=== PATIENT | male | born 1965 | race Caucasian/White ===

== ENCOUNTER 2020-11-18 21:25 | Observation (INO) | payer BC, SELFPAY ==
[2020-11-18 21:26] VITALS: BP 143/84; PULSE 78; RESP 20; TEMP 36.4; O2SAT 88; BMI 35.5
[2020-11-18 21:43] VITALS: BP 143/84; BP 144/83; PULSE 76; PULSE 78; RESP 20; TEMP 36.4; O2SAT 90; O2SAT 92
[2020-11-18 22:33] VITALS: BP 140/84; PULSE 72; PULSE 78; RESP 23; TEMP 36.4; O2SAT 90
--- NOTE | 2020-11-18 22:37 | RAD_ITS ---
STUDY: X-RAY CHEST REASON FOR EXAM: Male, 55 years old. cough TECHNIQUE: One view COMPARISON: Prior chest radiograph of 12/11/2011 FINDINGS: Chronic scarring at the left lung base with a blunted costophrenic angle. Pleural and/or parenchymal calcifications. Negative for new consolidation, focal atelectasis or substantial pleural effusion. Normal size heart. Normal mediastinum and luli. Normal visualized pulmonary arteries. Normal visualized aortic arch and descending thoracic aorta. Normal visualized thoracic spine. Normal visualized ribs, clavicles, and shoulders. There is no demonstrated abnormality of the visualized soft tissue structures of the upper abdomen. RAD/Chest 1 View (Portable) IMPRESSION: Chronic pleural parenchymal changes at the left lung base. Negative for new consolidation, focal atelectasis or other infiltrates. Electronically Signed: Elicia Gallardo MD at 23:26 EST , Service support ,
--- NOTE | 2020-11-18 22:39 | EKG12_ITS ---
Test Reason : SOB Blood Pressure : / mmHG Vent. Rate : 073 BPM Atrial Rate : 073 BPM P-R Int : 140 ms QRS Dur : 088 ms QT Int : 384 ms P-R-T Axes : 054 121 068 degrees QTc Int : 423 ms Normal sinus rhythm Left posterior fascicular block Poor R wave progression Abnormal ECG Confirmed by SKYE ROSENBAUM, ARIADNE ([id number]), editor book PRETTY VALLECILLO ([id number]) on 11/23/2020 2:20:55 PM Referred By: Confirmed By:ARIADNE CHEUNG MD
--- NOTE | 2020-11-18 22:40 | ED.DCSUM_ITS ---
History of Present Illness Chief Complaint: Shortness of Breath Narrative: 55-year-old male presenting with shortness of breath x3 weeks. Patient states he has been gradually getting worse. He states he is having difficulty sleeping and that his pulse ox has been dipping into the 80s at home. Patient is scheduled for a sleep study in a couple of weeks. Patient has history of COPD and is a current smoker. He denies chest pain or palpitations. Patient has been hospitalized in the past for COPD exacerbations. He has not been intubated. Patient denies fever, chills, myalgias, change in taste or smell. He does not know of any exposures to COVID-19 or other illness. Past Medical History - Allergies and Home Meds Allergies/Adverse Reactions: Allergies sulfamethoxazole [From Bactrim] Adverse Reaction (Verified 11/18/20 21:28) Nausea/Vom/Diarrhea trimethoprim [From Bactrim] Adverse Reaction (Verified 11/18/20 21:28) Nausea/Vom/Diarrhea Primary Care Physician: [facility] Doctor,Out of [NON-STAFF] - Prior records reviewed: Yes Past Medical History: - - Hypertension, COPD, hyperlipidemia Surgical History: noncontributory Smoking Status: Current every day smoker Alcohol: None Drugs: None - Family History Maternal Family History: Reports: No pertinent history Paternal Family History: Reports: No pertinent history Review of Systems General: Denies: Chills, Fever, Sweats Eyes: Denies: Visual changes - bilaterally, Diplopia ENT: Denies: Rhinorrhea, Sore throat Cardiovascular: Denies: Chest pain, Palpitations Respiratory: Reports: Dyspnea, Dyspnea on exertion Gastrointestinal: Denies: Nausea, Vomiting, Diarrhea, Constipation, Melena, Hematochezia, -, - Genitourinary: Denies: Dysuria, Hematuria, Frequency Musculoskeletal: Denies: Back pain, Extremity Pain Skin: Denies: Rash, Wounds Neurological: Denies: Headache, Weakness, Numbness Psych: Denies: Depression, Anxiety, Suicidal thoughts, Suicidal ideations, -, - Physical Exam Vital Signs/Narrative: Vital Signs Temp Pulse Resp BP Pulse Ox 11/18/20 22:33 97.6 F L 78 23 H 140/84 H 90 11/18/20 21:43 97.6 F L 78 20 H 143/84 H 92 11/18/20 21:26 97.6 F L 78 20 H 143/84 H 88 Inital Vital Signs reviewed: Yes General: Obese, No Acute Distress Head: Normocephalic, Atraumatic Eyes: Perrl, EOMI ENT: Moist mucous membranes, No rhinorrhea. Negative for: TM's clear, Dry mucous membranes, Nasal congestion, Sinus tenderness, - Cardiovascular: Regular rate, Regular rhythm Respiratory: No distress, Wheezing Abdomen: Soft, Nontender, Nondistended, Normal bowel sounds Extremities: Nontender, Edema - Trace bilateral edema in lower extremities. Skin: Normal color, No rash. Negative for: Cyanosis, Diaphoresis Neurological: Alert, Oriented x3, Cranial nerves II-XII grossly intact Psychological: Normal affect, Normal Mood Diagnostic/Tx/Re-eval Clinical Impression(s) from Imaging Studies Chest X-Ray 11/18/20 22:37 IMPRESSION: Chronic pleural parenchymal changes at the left lung base. Negative for new consolidation, focal atelectasis or other infiltrates. Electronically Signed: Elicia Gallardo MD at 23:26 EST , Service support , Laboratory Data 11/18/20 11/18/20 11/18/20 21:52 21:52 21:52 WBC 11.0 RBC 5.64 Hgb 16.1 Hct 52.9 MCV 93.8 MCH 28.5 MCHC 30.4 L RDW Std Deviation 51.5 H RDW Coeff of Maylin 15.0 H Plt Count 287 MPV 9.7 Immature Gran % (Auto) 0.300 Neut % (Auto) 70.1 H Lymph % (Auto) 14.9 L [place] % (Auto) 11.8 H Eos % (Auto) 2.1 Baso % (Auto) 0.8 Absolute Neuts (auto) 7.7 Absolute Lymphs (auto) 1.63 Nucleated RBC % 0 D-Dimer Quant (PE/DVT) 0.37 Sodium 141 Potassium 4.4 Chloride 106 Carbon Dioxide 34.0 H Anion Gap 1 L BUN 18 Creatinine 0.77 Estim Creat Clear Calc 121.06 Est GFR (MDRD) Af Amer 135 Est GFR (MDRD) Non-Af 112 BUN/Creatinine Ratio 23.5 H Glucose 90 Lactic Acid Calcium 8.3 L Total Bilirubin 0.50 AST 6 L ALT 19 Alkaline Phosphatase 62 Troponin I < 0.015 B-Natriuretic Peptide Total Protein 6.3 L Albumin 3.3 Globulin 3.0 Albumin/Globulin Ratio 1.1 Procalcitonin COVID-19 (RACHEL) 11/18/20 11/18/20 11/18/20 21:52 21:52 21:52 WBC RBC Hgb Hct MCV MCH MCHC RDW Std Deviation RDW Coeff of Maylin Plt Count MPV Immature Gran % (Auto) Neut % (Auto) Lymph % (Auto) [place] % (Auto) Eos % (Auto) Baso % (Auto) Absolute Neuts (auto) Absolute Lymphs (auto) Nucleated RBC % D-Dimer Quant (PE/DVT) Sodium Potassium Chloride Carbon Dioxide Anion Gap BUN Creatinine Estim Creat Clear Calc Est GFR (MDRD) Af Amer Est GFR (MDRD) Non-Af BUN/Creatinine Ratio Glucose Lactic Acid 1.0 Calcium Total Bilirubin AST ALT Alkaline Phosphatase Troponin I B-Natriuretic Peptide 421.6 H Total Protein Albumin Globulin Albumin/Globulin Ratio Procalcitonin < 0.01 COVID-19 (RACHEL) 11/18/20 22:50 WBC RBC Hgb Hct MCV MCH MCHC RDW Std Deviation RDW Coeff of Maylin Plt Count MPV Immature Gran % (Auto) Neut % (Auto) Lymph % (Auto) [place] % (Auto) Eos % (Auto) Baso % (Auto) Absolute Neuts (auto) Absolute Lymphs (auto) Nucleated RBC % D-Dimer Quant (PE/DVT) Sodium Potassium Chloride Carbon Dioxide Anion Gap BUN Creatinine Estim Creat Clear Calc Est GFR (MDRD) Af Amer Est GFR (MDRD) Non-Af BUN/Creatinine Ratio Glucose Lactic Acid Calcium Total Bilirubin AST ALT Alkaline Phosphatase Troponin I B-Natriuretic Peptide Total Protein Albumin Globulin Albumin/Globulin Ratio Procalcitonin COVID-19 (RACHEL) Not Detected - Medical Decision Making 55-year-old male with history of COPD presenting with shortness of breath for the last 3 weeks. He has no fever, chills, myalgias, loss of taste or smell, chest pain. Patient states his oxygen saturations have been dipping into the low 80s at home. Patient also describes sleep apnea. Patient had EKG performed on arrival which is sinus rhythm at 73 bpm without signs of ischemic changes. Patient was given breathing treatments and Solu-Medrol because he was wheezing. Chest x-ray is interpreted by myself shows chronic changes without acute findings of infiltrate or CHF. BC shows white blood cell count 11, hemoglobin 16, platelets 287. D-dimer is negative. Covid 19 is negative. BMP is unremarkable with exception of an elevated CO2 at 34 which is only slightly elevated. Procalcitonin is negative. BNP is slightly elevated at 421.6. Patient does have some slight pedal edema but no findings of CHF on x-ray. Patient been reevaluated several times and has noted to be hypoxic into the 80s. The lowest I have seen him ad is 82. Given this I will admit him for further treatment. Impression: 1. COPD exacerbation 2. Hypoxia ED Disposition - Plan for ED Patient: Referrals: [facility] Doctor,Out of [NON-STAFF] -
[2020-11-18 22:49] LABS: Absolute Lymphocyte Count 1.63 X10^3/uL (0.83-4.51); Absolute Neutrophil Count 7.7 X10^3/uL (2.0-7.7); Basophil# 0.09 X10^3/uL; Basophil% 0.8 % (0-1); Eosinophil# 0.23 X10^3/uL; Eosinophils% 2.1 % (0-5); Hematocrit 52.9 % (40-54); Hemoglobin 16.1 g/dL (13.0-16.5); Lymphocyte # 1.63 X10^3/ul (4.0); Lymphocyte % 14.9 % (19-41); Mean Corp Hgb Conc 30.4 g/dL (32-36); Mean Corpuscular Hgb 28.5 pg (27.0-32.0); Mean Corpuscular Volume 93.8 fL (80-94); Mean Platelet Vol. 9.7 fl (6.2-12.0); Monocyte# 1.29 X10^3/uL; Monocyte% 11.8 % (0-10); NRBC Flagged by Analyzer 0 % (0-5); Neutrophil # 7.68 X10^3/uL (2.7-7.7); Neutrophil % 70.1 % (47-70); Platelet Count 287 K/mm3 (150-450); RBC Distribution Width SD 51.5 fl (35.1-43.9); Red Blood Count 5.64 M/mm3 (4.6-6.2)
[2020-11-18] MEDS: Ipratropium/Albuterol Sulfate 3 ML AMPUL.NEB INHALATION (22:53)
[2020-11-18] MEDS: Albuterol 2.5 MG/3 ML VIAL.NEB. INHALATION (22:53)
[2020-11-18 22:54] VITALS: PULSE 71; RESP 25
[2020-11-18 22:59] LABS: D-Dimer Quantitative (DVT/PE) 0.37 FEU/ug/m (0.27-0.49)
[2020-11-18 23:01] LABS: ALB/GLOB Ratio 1.1 RATIO (0.9-2.4); AST(SGOT) 6 U/L (15-37); Alanine Aminotransfer ALT/SGPT 19 U/L (16-61); Albumin, Serum 3.3 g/dL (3.2-5.0); Alkaline Phosphatase 62 U/L (45-117); Anion Gap 1 (5-15); BUN 18 mg/dL (7-18); BUN/Creat Ratio 23.5 RATIO (10-20); Calcium,Total 8.3 mg/dL (8.5-10.1); Chloride 106 mmol/L (98-107); Creatinine, Serum 0.77 mg/dL (0.70-1.30); EST Glomerular Filtration Rate 112 mL/min (>60); Est Glom Filt Rate - Afr Amer 135 mL/min (>60); Estimated Creatinine Clearance 121.06 ml/min; Glucose 90 mg/dL (74-106); Potassium 4.4 mmol/L (3.5-5.1); Protein, Total 6.3 g/dL (6.4-8.2); Sodium Level 141 mmol/L (136-145)
[2020-11-18 23:06] LABS: BNP,B-Type NATRIURETIC PEPTIDE 421.6 pg/mL (0-100)
[2020-11-18] MEDS: MethylPREDNISolone 125 MG/2 ML Vial IV (23:14)
[2020-11-18 23:15] VITALS: BP 136/78; PULSE 79; PULSE 82; RESP 20; TEMP 35.9; O2SAT 93
[2020-11-18 23:27] LABS: Procalcitonin < 0.01 ng/mL (0.00-0.09)
[2020-11-19] VITALS (15 sets, daily range): BP systolic 134–148; BP diastolic 68–83; PULSE 69–83; RESP 16–22; TEMP 35.9–36.5; O2SAT 84–96; BMI 36.5
--- NOTE | 2020-11-19 00:16 | ED.RN ---
PT INITIALLY DIDN'T WANT TO BE ADMITTED. DR. ALANIZ AWARE AND SPOKE WITH PT. PT IS NOW WILLING TO STAY.
--- NOTE | 2020-11-19 01:37 | PCM.HP.STD ---
<Julissa Morales - Last Filed: 11/19/20 02:17> Problem List (1) COPD exacerbation Status: Acute (2) Obesity (BMI 30-39.9) Status: Chronic (3) Hypertension Status: Chronic Qualifiers: Hypertension type: essential hypertension Qualified Code(s): I10 - Essential (primary) hypertension (4) Hyperlipidemia Status: Acute (5) Tobacco abuse Status: Acute History of Present Illness Date of Admission: 11/19/20 Chief Complaint: Shortness of breath The patient is a 55 year old M who presents today with shortness of breath. Patient reports this has been an ongoing issue over the past 3 weeks. Patient denies being knowledge of being around anyone who has COVID-19. Patient reports a similar episode in 2019 after which he was on oxygen for approximately 1 month and states they told me I had 3 viruses. Patient has not been on oxygen since. Patient denies fever, chills, chest pain, palpitations, nausea, vomiting, diarrhea, constipation. Patient received albuterol, DuoNeb, and Solu-Medrol 125 mg IV. Patient is currently on 4 L nasal cannula oxygen. Past Medical History Past Medical History (Chronic Problems): Chronic Problems Hypertension (Chronic) Hyperlipidemia (Chronic) Obesity (BMI 30-39.9) (Chronic) Tobacco abuse (Chronic) Allergies sulfamethoxazole [From Bactrim] Adverse Reaction (Verified 11/18/20 21:28) Nausea/Vom/Diarrhea trimethoprim [From Bactrim] Adverse Reaction (Verified 11/18/20 21:28) Nausea/Vom/Diarrhea Home Medications: Ambulatory Orders Medication Instructions Recorded Albuterol Aerosols [Ventolin 2.5 mg INHALATION Q6H PRN PRN 11/18/20 Aerosols] Albuterol IH (ProAir) [Proair Hfa 2 puff INHALATION Q6H PRN PRN 11/18/20 (SP)Vent Pts] Amlodipine [Norvasc] 10 mg PO DAILY 11/18/20 Aspirin [Aspirin, Baby] 81 mg PO DAILY@0800 11/18/20 Atorvastatin Calcium [Lipitor] 40 mg PO QHS 11/18/20 Fluticasone/Umeclidin/Vilanter 1 ea IH DAILY 11/18/20 [Trelegy Ellipta 100-62.5-25] Varenicline [Chantix] 1 mg PO DAILY 11/18/20 Surgical History: noncontributory Psychiatric History: No pertinent psych hx Lives: Spouse/ Significant Other Smoking Status: Current every day smoker Tobacco Use: Cigarettes Alcohol: None, Rare Drugs: None - *Family History Maternal History Items: No pertinent history Paternal History Items: No pertinent history Review of Systems Constitutional: Reports: Fatigue. Denies: Chills, Fever, Weight Change HEENT: Denies: Head Aches, Sinus Congestion, Sinus Drainage Cardiovascular: Denies: Chest Pain, Palpitations Respiratory: Reports: Cough - Dry occasional nonproductive cough, Shortness of breath at rest, Shortness of breath upon exertion. Denies: Sputum production, Wheezing Gastrointestinal: Denies: Abdominal Pain, Nausea, Vomiting Genitourinary: Denies: Dysuria Musculoskeletal: Denies: Joint Pain, Joint Tenderness Skin: Denies: Rash, Wounds Neurological: Denies: Numbness, Tingling, Focal weakness Psychiatric: Denies: Anxiety, Depression, Homicidal Ideations, Suicidal Ideations Hematologic/ Lymphatic: Denies: Easy Bruising, Easy Bleeding VTE Information - Inpt Only VTE Present on Admission: No VTE Mechan Device Prophylaxis: SCD's, None VTE Pharm Prophylaxis ordered?: Yes Patient Problems: Active and Suspected Problems COPD exacerbation (Acute) - Physical Exam Vitals/I&O's: Vital Signs Temp Pulse Resp BP Pulse Ox 96.7 F L 75 22 H 140/83 H 95 11/19/20 00:17 11/19/20 01:10 11/19/20 01:10 11/19/20 01:10 11/19/20 01:10 Oxygen Flow Rate (L/min) 4 Oxygen Delivery Method Nasal Cannula Weight: 269 lb 4.8 oz Body Mass Index (BMI) 35.5 General: Alert, Oriented x3, Cooperative HEENT: Atraumatic, PERRLA, EOMI, Normocephalic Neck: Supple, No JVD, Negative Carotid Bruits Lungs: Clear to auscultation, Normal air movement, Diminished, Short of Breath Cardiovascular: Regular rate, Regular Rhythm, Normal S1, Normal S2, No murmurs Abdomen: Bowel Sounds Present, Soft, Non Tender Extremities: No edema, Capillary Refill Less than 3 Seconds Skin: No rashes, No breakdown Musculoskeletal: No Tenderness to Palpation of Joints or Extremities Neurological: Cranial nerves II-XII grossly intact Psych/Mental Status: Normal Affect, Appropriate Laboratory Results 11/18/20 21:52: WBC 11.0, RBC 5.64, Hgb 16.1, Hct 52.9, MCV 93.8, MCH 28.5, MCHC 30.4 L, RDW Std Deviation 51.5 H, RDW Coeff of Maylin 15.0 H, Plt Count 287, MPV 9.7, Immature Gran % (Auto) 0.300, Neut % (Auto) 70.1 H, Lymph % (Auto) 14.9 L, [place] % (Auto) 11.8 H, Eos % (Auto) 2.1, Baso % (Auto) 0.8, Absolute Neuts (auto) 7.7, Absolute Lymphs (auto) 1.63, Nucleated RBC % 0 11/18/20 21:52: D-Dimer Quant (PE/DVT) 0.37 11/18/20 21:52: Sodium 141, Potassium 4.4, Chloride 106, Carbon Dioxide 34.0 H, Anion Gap 1 L, BUN 18, Creatinine 0.77, Estim Creat Clear Calc 121.06, Est GFR (MDRD) Af Amer 135, Est GFR (MDRD) Non-Af 112, BUN/Creatinine Ratio 23.5 H, Glucose 90, Calcium 8.3 L, Total Bilirubin 0.50, AST 6 L, ALT 19, Alkaline Phosphatase 62, Troponin I < 0.015, Total Protein 6.3 L, Albumin 3.3, Globulin 3.0, Albumin/Globulin Ratio 1.1 11/18/20 21:52: Lactic Acid 1.0 11/18/20 21:52: B-Natriuretic Peptide 421.6 H 11/18/20 21:52: Procalcitonin < 0.01 11/18/20 22:50: COVID-19 (RACHEL) Not Detected Assessment/Plan All Active Problems COPD exacerbation (Acute) 1.COPD exacerbation?Covid PCR negative, respiratory panel ordered. Routine duo nebs and as needed albuterol ordered. IV Solu-Medrol 40 mg every 8 hours ordered. Chest x-ray shows no acute changes. Patient currently on 4 L nasal cannula with orders to titrate to keep pulse ox greater than 90%. Will obtain ECHO to rule out CHF. 2. Obesity?consult nutrition. 3. Hypertension?stable. We will continue home regimen of Norvasc. 4. Hyperlipidemia?continue home regimen of aspirin and Lipitor. 5. Tobacco abuse?currently 1 pack/day smoker. Continue Chantix as part of smoking cessation treatment. DVT prophylaxis?subcutaneous Lovenox. This patient was seen by CASSIE Griffith under the supervision of Dr. Tate. <Cristopher Tate - Last Filed: 11/19/20 02:36> Problem List (1) Hypertension Status: Chronic Qualifiers: Hypertension type: essential hypertension Qualified Code(s): I10 - Essential (primary) hypertension (2) Hyperlipidemia Status: Chronic (3) COPD exacerbation Status: Acute (4) Obesity (BMI 30-39.9) Status: Chronic (5) Tobacco abuse Status: Chronic History of Present Illness The patient is a 55 year old M [] Past Medical History Allergies sulfamethoxazole [From Bactrim] Adverse Reaction (Verified 11/18/20 21:28) Nausea/Vom/Diarrhea trimethoprim [From Bactrim] Adverse Reaction (Verified 11/18/20 21:28) Nausea/Vom/Diarrhea - Physical Exam Vitals/I&O's: Vital Signs Temp Pulse Resp BP Pulse Ox 96.7 F L 75 22 H 140/83 H 95 11/19/20 00:17 11/19/20 01:10 11/19/20 01:10 11/19/20 01:10 11/19/20 01:10 Oxygen Flow Rate (L/min) 4 Oxygen Delivery Method Nasal Cannula Weight: 122.152 kg Body Mass Index (BMI) 35.5 Laboratory Results 11/18/20 21:52: WBC 11.0, RBC 5.64, Hgb 16.1, Hct 52.9, MCV 93.8, MCH 28.5, MCHC 30.4 L, RDW Std Deviation 51.5 H, RDW Coeff of Maylin 15.0 H, Plt Count 287, MPV 9.7, Immature Gran % (Auto) 0.300, Neut % (Auto) 70.1 H, Lymph % (Auto) 14.9 L, [place] % (Auto) 11.8 H, Eos % (Auto) 2.1, Baso % (Auto) 0.8, Absolute Neuts (auto) 7.7, Absolute Lymphs (auto) 1.63, Nucleated RBC % 0 11/18/20 21:52: D-Dimer Quant (PE/DVT) 0.37 11/18/20 21:52: Sodium 141, Potassium 4.4, Chloride 106, Carbon Dioxide 34.0 H, Anion Gap 1 L, BUN 18, Creatinine 0.77, Estim Creat Clear Calc 121.06, Est GFR (MDRD) Af Amer 135, Est GFR (MDRD) Non-Af 112, BUN/Creatinine Ratio 23.5 H, Glucose 90, Calcium 8.3 L, Total Bilirubin 0.50, AST 6 L, ALT 19, Alkaline Phosphatase 62, Troponin I < 0.015, Total Protein 6.3 L, Albumin 3.3, Globulin 3.0, Albumin/Globulin Ratio 1.1 11/18/20 21:52: Lactic Acid 1.0 11/18/20 21:52: B-Natriuretic Peptide 421.6 H 11/18/20 21:52: Procalcitonin < 0.01 11/18/20 22:50: COVID-19 (RACHEL) Not Detected Current Medications Acetaminophen (Acetaminophen 325 Mg Tablet) 650 mg PO Q6H PRN PRN PRN Reason: Pain Score 1-10/Temp > 100.7 F Albuterol Sulfate (Albuterol 2.5 Mg/3 Ml Vial.Neb.) 2.5 mg INHALATION Q2H PRN PRN PRN Reason: SHORTNESS OF BREATH Albuterol/Ipratropium (Ipratropium/Albuterol Sulfate 3 Ml Ampul.Neb) 3 ml INHALATION Q4H.RT RYAN Amlodipine Besylate (Amlodipine 10 Mg Tablet) 10 mg PO DAILY [facility] Aspirin (Aspirin 81 Mg Tab.Chew) 81 mg PO DAILY@0800 [facility] Atorvastatin Calcium (Atorvastatin Calcium 40 Mg Tablet) 40 mg PO QHS [facility] Enoxaparin Sodium (Enoxaparin 40 Mg/0.4 Ml Syringe) 40 mg SC DAILY [facility] Methylprednisolone (Methylprednisolone 40 Mg/Ml Vial) 40 mg IV Q8 RYAN Ondansetron HCl (Ondansetron 4 Mg/2 Ml Vial) 4 mg IV Q8H PRN PRN PRN Reason: NAUSEA/VOMITING Varenicline (Varenicline 1 Mg Tablet) 1 mg PO DAILY [facility] Assessment/Plan Patient was seen and examined independently. Patient complaint of 3 weeks of shortness of breath. Also he has chronic orthopnea. He denies any fever or chills. He has some edema of bilateral legs. He has a productive cough. 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 Previously (more than 2 years ago) he was on home oxygen but stopped using it since he improved. Patient A &O x3. Heart sounds S1-S2 are present. Patient with mild wheezes. Bilateral legs of mild edema. Assessment and plan. Covid test was negative. Chest x-ray was independently interpreted. Chest x-ray showed hyperinflation. Case was discussed with Julissa Figueroa, nurse practitioner; and I agree with the assessment and plan..
--- NOTE | 2020-11-19 01:49 | ECHOCS_ITS ---
Reason For Study: ARRHYTHMIA Procedure This was a 2D Doppler, Color Flow transthoracic echocardiogram. The study was technically difficult. Contrast injection was performed. Exam performed portable in patient room. Left Ventricle Normal left ventricle. The estimated ejection fraction is 55-60 %. Right Ventricle Normal systolic function. Atria Normal left atrium. Normal right atrium. Mitral Valve The mitral valve is structurally normal. No prolapse or stenosis seen. No mitral valve insufficiency. Tricuspid Valve Normal tricuspid valve. Aortic Valve Normal aortic valve. Pulmonic Valve The pulmonic valve is not well visualized. Great Vessels Normal aortic root. Inferior vena cava collapse with respiration. Pericardium/Pleural No pericardial effusion. Medication Diluted definity 5.0ml given slow IV push to enhance endocardial definition. MMode/2D Measurements & Calculations LVIDd: 5.7 cm IVSd: 1.1 cm Ao root diam: 3.7 cm LVIDs: 3.7 cm LVPWd: 1.1 cm FS: 34.6 % LAV(MOD-bp): 73.3 ml LA A4 area: 20.6 cm2 LA dimension(2D): 4.1 cm LAV(MOD-bp) Indexed: 29.7 ml/m2 LAV(MOD-sp2): 79.5 ml LAV(MOD-sp4): 65.5 ml RA A4 area: 26.4 cm2 Time Measurements MV dec time: 0.29 sec Doppler Measurements & Calculations MV E max anil: 97.9 cm/sec Lat Peak E' Anil: 9.8 cm/sec Med Peak E' Anil: 6.6 cm/sec MV A max anil: 77.3 cm/sec E/E' lat: 10.0 E/E' med: 14.9 MV E/A: 1.3 Ao V2 max: 163.9 cm/sec LV V1 max: 135.8 cm/sec PA V2 max: 113.5 cm/sec Ao max P.8 mmHg LV V1 max P.4 mmHg TR max anil: 205.0 cm/sec TR max P.8 mmHg Interpretation Summary The estimated ejection fraction is 55-60 %. Normal left ventricle systolic function Inferior vena cava collapse with respiration. Definity study showed Normal LV wall motion Ordering Physician: Julissa Morales Performed By: Fara Mcintyre RDCS, RVT
[2020-11-19] MEDS: Ipratropium/Albuterol Sulfate 3 ML AMPUL.NEB INHALATION ×4 (03:37→14:24)
[2020-11-19 06:57] LABS: Absolute Lymphocyte Count 0.36 X10^3/uL (0.83-4.51); Absolute Neutrophil Count 10.8 X10^3/uL (2.0-7.7); Basophil# 0.02 X10^3/uL; Basophil% 0.2 % (0-1); Hemoglobin 16.7 g/dL (13.0-16.5); Lymphocyte # 0.36 X10^3/ul (4.0); Lymphocyte % 3.2 % (19-41); Mean Corp Hgb Conc 29.7 g/dL (32-36); Mean Corpuscular Volume 94.5 fL (80-94); Mean Platelet Vol. 9.6 fl (6.2-12.0); Monocyte# 0.04 X10^3/uL; Monocyte% 0.4 % (0-10); NRBC Flagged by Analyzer 0 % (0-5); Neutrophil # 10.83 X10^3/uL (2.7-7.7); Neutrophil % 95.8 % (47-70); POSITIVE DIFFERENTIAL YES; Platelet Count 285 K/mm3 (150-450); RBC Distribution Width CV 15.6 % (11.6-14.6); Red Blood Count 5.96 M/mm3 (4.6-6.2); White Blood Count 11.3 K/mm3 (4.4-11.0)
[2020-11-19 06:59] LABS: Hematocrit 56.3 % (40-54)
[2020-11-19 07:00] LABS: Differential Indicated SCAN CRITERIA MET
[2020-11-19 07:24] LABS: Anion Gap 0 (5-15); BUN 14 mg/dL (7-18); BUN/Creat Ratio 18.2 RATIO (10-20); Calcium,Total 8.6 mg/dL (8.5-10.1); Chloride 105 mmol/L (98-107); Creatinine, Serum 0.77 mg/dL (0.70-1.30); EST Glomerular Filtration Rate 111 mL/min (>60); Est Glom Filt Rate - Afr Amer 135 mL/min (>60); Estimated Creatinine Clearance 121.06 ml/min; Glucose 191 mg/dL (74-106); Sodium Level 140 mmol/L (136-145)
[2020-11-19 07:48] LABS: Differential Comment SCANNED
[2020-11-19] MEDS: Aspirin 81 MG TAB.CHEW PO (10:23)
[2020-11-19] MEDS: Enoxaparin 40 MG/0.4 ML Syringe SC (10:23)
--- NOTE | 2020-11-19 12:50 | CASEMGMT ---
Addendum entered by Gail Vargas 11/19/20 15:20: PASTOR YAÑEZ sent referral to [employer] and arranged for O2 tank to be delivered to pt room prior to dc. Original Note: PASTOR YAÑEZ assessment: Face to Face with patient for initial transition planning/care coordination assessment. PASTOR YAÑEZ introduced self and role at [facility], pt voices understanding and consents to assessment. Pt sitting up in bed in no distress on O2. Daughter at bedside. Pt is A/Ox4 and answers all questions appropriately at this time. Care providers, pharmacy, and demographics verified/updated. Presentation: SOB x 3 wks Admitting dx: COPD exacerbation PCP: Gerardo Specialists: [place]let gardiner from [facility]. Pt has an appt set up for Monday11/23/20. Preferred [facility]acy: [facility] Insurance: [place] Prescription Benefit: Living Will/ HPOA: Pt states does not have LW/HPOA and declines AD info at this time. LNOK: Ivis Cho Living Arrangements: Pt states he lives in a modular home with his which has a ramp for entry. Pt states I in ADL's. Transportation: Pt states drives self and states no transportation concerns. DME/HHC: Pt states he has the following equipment from his son's recent surgery that he has access to: shower chair, raised toilet seat, cane, walker, w/c. He also has a nebulizer machine. Denies need for further DME. He has not had HHC previously. Pt qualifies for home O2. Rx received. PASTOR YAÑEZ discussed DME companies with pt. Pt provided with list of DME providers in network with insurance. Pt's preferred provider is [facility]. Pt states no concerns with going home at time of discharge. 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 Pt reports smoking 1 pack of cigarettes per day and is a social drinker. Pt states no further concerns/needs. CM to follow for any further for any further discharge planning/needs. Advised pt to ask for CM if any further questions/concerns/needs arise, voices understanding.
--- NOTE | 2020-11-19 15:37 | DCINST_ITS ---
- Discharge Diagnoses Current Active Problems: Current Active and Chronic Problems Hypertension (Chronic) Hyperlipidemia (Chronic) COPD exacerbation (Acute) Obesity (BMI 30-39.9) (Chronic) Tobacco abuse (Chronic) You will use the following diet at home:: Calorie/Carbohydrate Controlled (specify 1200, 1400, etc) - 2000 Your food should be the consistency of: Regular Your liquids should be the consistency of: Regular/Thin Discharge Activity: Return to Normal Activity Call your doctor if you observe: Fever of 101 or Higher, Shortness of breath, Dizziness, Fainting spells, Swelling in the ankles, Chest pain, Increased palpitations (irregular heartbeat) Instructions: Treatments for COPD, ED Heart Failure Congestive Right Additional Instructions: Follow-up with your PCP tomorrow at 1030. Recommend attending a BMP at some point next week to evaluate renal function. Your creatinine while here was around 0.77 however I am starting you on Lasix secondary to the possibility of diastolic heart failure since your BNP was elevated at 421, your echo showed a normal EF. I also recommend following up with pulmonology to obtain sleep study as you also likely have a component of obstructive sleep apnea. We will continue with 7 days of prednisone 40 mg p.o. daily. Allergies/Adverse Reactions: Allergies sulfamethoxazole [From Bactrim] Adverse Reaction (Verified 11/18/20 21:28) Nausea/Vom/Diarrhea trimethoprim [From Bactrim] Adverse Reaction (Verified 11/18/20 21:28) Nausea/Vom/Diarrhea Medications to take at Discharge Albuterol Aerosols [Ventolin Aerosols] 2.5 mg INHALATION Q6H PRN PRN 11/18/20 Albuterol IH (ProAir) [Proair Hfa] 2 puff INHALATION Q6H PRN PRN 11/18/20 Amlodipine [Norvasc] 10 mg PO DAILY 11/18/20 Aspirin [Aspirin, Baby] 81 mg PO DAILY@0800 11/18/20 Atorvastatin Calcium [Lipitor] 40 mg PO QHS 11/18/20 Fluticasone/Umeclidin/Vilanter [Trelegy Ellipta 100-62.5-25] 1 ea IH DAILY 11/18/20 Varenicline [Chantix] 1 mg PO DAILY 11/18/20 Furosemide [Lasix] 20 mg PO DAILY #30 tab 11/19/20 Prednisone [Deltasone] 40 mg PO DAILY #14 tab 11/19/20 The following prescriptions were given: Prednisone [Deltasone] 40 mg PO DAILY #14 tab Transmission Status: Pending to [facility] Furosemide [Lasix] 20 mg PO DAILY #30 tab Transmission Status: Pending to [facility] Primary Care Physician: [facility] Doctor,Out of [NON-STAFF] - Please follow up with your Primary Care Physician in: 11/20/2020 at 10:30 Test Results: Test results from this visit will be discussed in further detail at your follow- up appointment, if applicable. Please Follow Up With: Pulmonology When: 11/23/2020
--- NOTE | 2020-11-19 16:31 | DS.PCM_ITS ---
Discharge Date and Diagnosis - Problem List Patient Problems: Active and Suspected Problems COPD exacerbation (Acute) Date of Admission: 11/19/20 Date of Discharge: 11/19/20 - Primary Discharge Diagnosis Acute Problems: Active Problems COPD exacerbation (Acute) - Secondary Discharge Diagnosis Chronic Problems: Chronic Problems Hypertension (Chronic) Hyperlipidemia (Chronic) Obesity (BMI 30-39.9) (Chronic) Tobacco abuse (Chronic) Hospital Course and Treatment Imaging Results: Clinical Impression(s) from Imaging Studies Chest X-Ray 11/18/20 22:37 IMPRESSION: Chronic pleural parenchymal changes at the left lung base. Negative for new consolidation, focal atelectasis or other infiltrates. Electronically Signed: Elicia Gallardo MD at 23:26 EST , Service support , Echo: Interpretation Summary The estimated ejection fraction is 55-60 %. Normal left ventricle systolic function Inferior vena cava collapse with respiration. Definity study showed Normal LV wall motion Operations: None Procedures: 2-D Echocardiogram Summary of Care Provided: Per HPI: The patient is a 55 year old M who presents today with shortness of breath. Patient reports this has been an ongoing issue over the past 3 weeks. Patient denies being knowledge of being around anyone who has COVID-19. Patient reports a similar episode in 2019 after which he was on oxygen for approximately 1 month and states they told me I had 3 viruses. Patient has not been on oxygen since. Patient denies fever, chills, chest pain, palpitations, nausea, vomiting, diarrhea, constipation. Patient received albuterol, DuoNeb, and Solu- Medrol 125 mg IV. Patient is currently on 4 L nasal cannula oxygen. Hospital Course: 1. COPD exacerbation/possible diastolic CHF/probable FTQ-89-vp[age]r-old male with a history of COPD presents with shortness of breath. Is present been going on for about 3 weeks. In that time he also developed lower extremity edema and he also states that he has some component of orthopnea with inability to lie flat and he does need multiple pillows under his head at night. He does have a pul internal controls consultant as an outpatient who is going to work him up for obstructive sleep apnea. In the ER he found to have a normal creatinine but he had an elevated BNP echo shows a normal EF. Based on his body habitus, his elevated BNP is probable ALPESH there is concern for possible cor pulmonale as well so we will discharge him on Lasix 20 mg p.o. daily with outpatient follow-up to monitor his renal function. We will also discharge him on 40 mg prednisone p.o. daily for 7 days. He sees his high density press operator on Monday. At rest he is requiring about 3 L via nasal cannula however with ambulation he requires 6. I did discuss with him that 6 is the maximum that a home concentrator can achieve however he is still insistent about going home today. I discussed with him the risks of discharge and he expressed understanding and would still like to go home today despite my explanation that I think he should stay, apparently it took a lot of convincing to even get him admitted overnight. 2. Tobacco abuse, hypertension, hyperlipidemia, morbid obesity chronic medical conditions which complicate his care. His home medications were continued where appropriate Patient Problems: Active and Suspected Problems COPD exacerbation (Acute) - Physical Exam Vitals/I&O's: Vital Signs Temp Pulse Resp BP Pulse Ox 97.7 F L 81 18 134/68 H 95 11/19/20 15:00 11/19/20 15:05 11/19/20 15:00 11/19/20 15:00 11/19/20 15:00 Oxygen Flow Rate (L/min) [ 4 AMBULATION with Oxygen] Oxygen Flow Rate (L/min) 3 Oxygen Delivery Method Nasal Cannula Weight: 276 lb 14.409 oz Body Mass Index (BMI) 36.5 Intake and Output for Last 24 Hours 11/17/20 11/18/20 11/19/20 23:59 23:59 23:59 Output Total 200 / 200 Balance -200 / -200 General: Alert, Oriented x3, Cooperative, No apparent distress HEENT: Atraumatic, PERRLA, EOMI, Normocephalic Oral: Moist Mucosa Neck: Supple, No JVD Lungs: No rhonchi, No rales, Diminished, Wheezes - Minimal, - - Poor air movement Cardiovascular: Regular rate, Regular Rhythm, Normal S1, Normal S2, No murmurs Abdomen: Soft, Non Tender, Non-Distended, No Hepato-splenomegaly Extremities: Capillary Refill Less than 3 Seconds, Edema - 1+ pitting edema bilaterally Skin: No rashes, No breakdown Neurological: Neuro grossly intact, Sensory exam intact to light touch and pain Psych/Mental Status: Normal Affect, Appropriate Microbiology Past 72 Hours 11/18/20 23:10 Mucosa - Nasopharyngeal Respiratory Panel (PCR) - Final Laboratory Results 11/18/20 21:52: WBC 11.0, RBC 5.64, Hgb 16.1, Hct 52.9, MCV 93.8, MCH 28.5, MCHC 30.4 L, RDW Std Deviation 51.5 H, RDW Coeff of Maylin 15.0 H, Plt Count 287, MPV 9 .7, Immature Gran % (Auto) 0.300, Neut % (Auto) 70.1 H, Lymph % (Auto) 14.9 L, Custer % (Auto) 11.8 H, Eos % (Auto) 2.1, Baso % (Auto) 0.8, Absolute Neuts (auto) 7.7, Absolute Lymphs (auto) 1.63, Nucleated RBC % 0 11/18/20 21:52: D-Dimer Quant (PE/DVT) 0.37 11/18/20 21:52: Sodium 141, Potassium 4.4, Chloride 106, Carbon Dioxide 34.0 H, Anion Gap 1 L, BUN 18, Creatinine 0.77, Estim Creat Clear Calc 121.06, Est GFR (MDRD) Af Amer 135, Est GFR (MDRD) Non-Af 112, BUN/Creatinine Ratio 23.5 H, Glucose 90, Calcium 8.3 L, Total Bilirubin 0.50, AST 6 L, ALT 19, Alkaline Phosphatase 62, Troponin I < 0.015, Total Protein 6.3 L, Albumin 3.3, Globulin 3.0, Albumin/Globulin Ratio 1.1 11/18/20 21:52: Lactic Acid 1.0 11/18/20 21:52: B-Natriuretic Peptide 421.6 H 11/18/20 21:52: Procalcitonin < 0.01 11/18/20 22:50: COVID-19 (RACHEL) Not Detected 11/19/20 03:40: Troponin I < 0.015 11/19/20 06:40: WBC 11.3 H, RBC 5.96, Hgb 16.7 H, Hct 56.3 H, MCV 94.5 H, MCH 28.0, MCHC 29.7 L, RDW Std Deviation 52.0 H, RDW Coeff of Maylin 15.6 H, Plt Count 285, MPV 9.6, Immature Gran % (Auto) 0.400, Neut % (Auto) 95.8 H, Lymph % (Auto) 3.2 L, Custer % (Auto) 0.4, Eos % (Auto) 0.0, Baso % (Auto) 0.2, Absolute Neuts (auto) 10.8 H, Absolute Lymphs (auto) 0.36 L, Nucleated RBC % 0, Differential Comment SCANNED 11/19/20 06:40: Sodium 140, Potassium 5.0, Chloride 105, Carbon Dioxide 35.0 H, Anion Gap 0 L, BUN 14, Creatinine 0.77, Estim Creat Clear Calc 121.06, Est GFR (MDRD) Af Amer 135, Est GFR (MDRD) Non-Af 111, BUN/Creatinine Ratio 18.2, Glucose 191 H, Calcium 8.6, Troponin I < 0.015 11/19/20 09:26: Troponin I < 0.015 Current Medications Acetaminophen (Acetaminophen 325 Mg Tablet) 650 mg PO Q6H PRN PRN PRN Reason: Pain Score 1-10/Temp > 100.7 F Albuterol Sulfate (Albuterol 2.5 Mg/3 Ml Vial.Neb.) 2.5 mg INHALATION Q2H PRN PRN PRN Reason: SHORTNESS OF BREATH Albuterol/Ipratropium (Ipratropium/Albuterol Sulfate 3 Ml Ampul.Neb) 3 ml INHALATION Q4H.RT [facility] Last Admin: 11/19/20 14:24 Dose: 3 ml Documented by: Amlodipine Besylate (Amlodipine 10 Mg Tablet) 10 mg PO DAILY [facility] Last Admin: 11/19/20 10:31 Dose: Not Given Documented by: Aspirin (Aspirin 81 Mg Tab.Chew) 81 mg PO DAILY@0800 [facility] Last Admin: 11/19/20 10:23 Dose: 81 mg Documented by: Atorvastatin Calcium (Atorvastatin Calcium 40 Mg Tablet) 40 mg PO QHS [facility] Enoxaparin Sodium (Enoxaparin 40 Mg/0.4 Ml Syringe) 40 mg SC DAILY [facility] Last Admin: 11/19/20 10:23 Dose: 40 mg Documented by: Sodium Chloride () 250 mls @ 15 mls/hr IV .[id number] PRN PRN Reason: Saline Flush Sodium Chloride () 250 mls @ 15 mls/hr IV .[id number] PRN PRN Reason: Additional IVPB Infusion Methylprednisolone (Methylprednisolone 40 Mg/Ml Vial) 40 mg IV Q8 [facility] Last Admin: 11/19/20 05:59 Dose: 40 mg Documented by: Ondansetron HCl (Ondansetron 4 Mg/2 Ml Vial) 4 mg IV Q8H PRN PRN PRN Reason: NAUSEA/VOMITING Sodium Chloride (0.9% Saline Lock 10 Ml Syringe) 10 - 40 ml IV UD PRN PRN Reason: SALINE FLUSH Varenicline (Varenicline 1 Mg Tablet) 1 mg PO DAILY [facility] Last Admin: 11/19/20 10:31 Dose: Not Given Documented by: Discharge Activity: Return to Normal Activity Call your doctor if you observe: Fever of 101 or Higher, Shortness of breath, Dizziness, Fainting spells, Swelling in the ankles, Chest pain, Increased palpitations (irregular heartbeat) Home Medications: Medications to take at Discharge Albuterol Aerosols [Ventolin Aerosols] 2.5 mg INHALATION Q6H PRN PRN 11/18/20 Albuterol IH (ProAir) [Proair Hfa] 2 puff INHALATION Q6H PRN PRN 11/18/20 Amlodipine [Norvasc] 10 mg PO DAILY 11/18/20 Aspirin [Aspirin, Baby] 81 mg PO DAILY@0800 11/18/20 Atorvastatin Calcium [Lipitor] 40 mg PO QHS 11/18/20 Fluticasone/Umeclidin/Vilanter [Trelegy Ellipta 100-62.5-25] 1 ea IH DAILY 11/18/20 Varenicline [Chantix] 1 mg PO DAILY 11/18/20 Furosemide [Lasix] 20 mg PO DAILY #30 tab 11/19/20 Prednisone [Deltasone] 40 mg PO DAILY #14 tab 11/19/20 Following Prescriptions Were Given to Patient: Prednisone [Deltasone] 40 mg PO DAILY #14 tab Transmission Status: Received by [facility] Furosemide [Lasix] 20 mg PO DAILY #30 tab Transmission Status: Received by [facility] Primary Care Physician: [facility] Doctor,Out of [NON-STAFF] - Please follow up with your Primary Care Physician in: 11/20/2020 at 10:30 Please Follow Up With: Pulmonology When: 11/23/2020 Patient Instructions: Treatments for COPD, ED Heart Failure Congestive Right Disposition: Home Minutes spent on discharge:: 35 Patient Condition:: Stable Medical Necessity - Tobacco Use Smoking Status: Current every day smoker Tobacco Use: Cigarettes Meaningful Use Info Meaningful Use Diagnoses (Choose all that apply): None applicable OBSV E&M: 86026 Observ/hosp same date L3
== END 2020-11-19 16:52 | disposition home or self-care (01) ==
LOC: ED 22:59 → PCU 11-19 07:15
PROVIDERS: Admitting Provider Nurse Practitioner Family; Emergency Provider Student in an Organized Health Care Education/Training Program; PCP Family Medicine; Visit Provider Family Medicine
DX: J44.1 Chronic obstructive pulmonary disease with (acute) exacerbation (principal); F17.210 Nicotine dependence, cigarettes, uncomplicated; E66.9 Obesity, unspecified; I10 Essential (primary) hypertension; E78.5 Hyperlipidemia, unspecified; Z68.36 Body mass index [BMI] 36.0-36.9, adult; Z79.899 Other long term (current) drug therapy; Z79.51 Long term (current) use of inhaled steroids; Z79.82 Long term (current) use of aspirin; I44.5 Left posterior fascicular block
CPT/HCPCS: 36415; 71045; 80048; 80053; 83605; 83880; 84145; 84484; 85025; 85379; 87040; 87633; 87635; 93005; 93306; 94640; 96372; 96374; 96376; 99218; 99282; Q9957; A4216; C8929; G0378; U0002

== ENCOUNTER 2021-07-24 11:28 | Inpatient (IN) | payer OTHER, SELFPAY ==
[2021-07-24] VITALS (15 sets, daily range): BP systolic 114–172; BP diastolic 64–96; PULSE 70–101; RESP 14–26; TEMP 36.4–37; O2SAT 84–98; BMI 38.9; BMI 38.6
--- NOTE | 2021-07-24 11:37 | EKG12_ITS ---
Test Reason : CP Blood Pressure : / mmHG Vent. Rate : 087 BPM Atrial Rate : 087 BPM P-R Int : 138 ms QRS Dur : 090 ms QT Int : 340 ms P-R-T Axes : 080 103 070 degrees QTc Int : 409 ms Normal sinus rhythm Normal ECG Confirmed by SKYE ROSENBAUM, ARIADNE ([id number]), photographic editor PRETTY VALLECILLO ([id number]) on 07/26/2021 10:29:28 AM Referred By: BONNIE Confirmed By:ARIADNE CHEUNG MD
--- NOTE | 2021-07-24 11:39 | EX.ED.DYSGE1 ---
HPI History of Present Illness Chief Complaint: Chest Pain Detail of Chief Complaint: Shortness of breath and fluttering in chest Informant: patient Narrative Narrative: Patient presents to the emergency department complaint of shortness of breath progressively worsening over the last for 5 days. Patient had a virtual visit with his primary care physician 2 days ago and was started on an antibiotic for suspected COPD exacerbation. Patient does have a cough and at times bringing up some white phlegm. Patient took a home Covid test yesterday and was negative. Patient has been immunized against COVID-19. Patient on 4 L of O2 at home at all times. He complains of increased dyspnea with activity. He denies fevers. He denies chest pain currently. Patient had a fluttering in his chest this morning that seems to have resolved. Patient has no heart history. Patient states that his father had a heart attack at age 51. Prior similar symptoms: Yes PFSH PFSH Medical History (Updated 07/24/21 @ 12:[address] Lenny Sky, DO) COPD (chronic obstructive pulmonary disease) Emphysema of lung Home Medications albuterol sulfate 2 puff INHALATION Q6H PRN PRN 11/18/20 [History Last Taken Unknown] albuterol sulfate 2.5 mg INHALATION Q6H PRN PRN 11/18/20 [History Last Taken Unknown] amlodipine 10 mg PO DAILY 11/18/20 [History Last Taken Unknown] aspirin 81 mg PO DAILY@0800 11/18/20 [History Last Taken Unknown] atorvastatin 40 mg PO QHS 11/18/20 [History Last Taken Unknown] [id number]-swufbqjms-wzmdndty 1 ea IH DAILY 11/18/20 [History Last Taken Unknown] varenicline 1 mg PO DAILY 11/18/20 [History Last Taken Unknown] furosemide 20 mg PO DAILY #30 tab 11/19/20 [Rx Last Taken Unknown] Allergy/AdvReac Type Severity Reaction Status Date / Time sulfamethoxazole AdvReac Nausea/Vom/ Verified 07/24/21 11:38 [From Bactrim] Diarrhea trimethoprim [From Bactrim] AdvReac Nausea/Vom/ Verified 07/24/21 11:38 Diarrhea Surgical History (Updated 07/24/21 @ 11:37 by Polly Brown) H/O hernia repair Social History Smoking Status: Current some day smoker tobacco type: cigarettes ROS ROS ED Constitutional Constitutional ED: Reports systems reviewed and no addt'l complaints, except as documented; Denies body ache(s), change in weight or chills Eyes Eyes: Denies acute decrease in peripheral vision, change in vision, double vision or loss of vision ENT ENT ED: Reports none; Denies ear pain, lip swelling, loss taste/smell, neck pain, otalgia or sore throat Cardiovascular Cardiovascular: Reports none, chest pain and palpitations; Denies abdominal pain, chest pain with activity, leg edema, lightheadedness, rapid heart rate or syncope Respiratory/Chest Respiratory/Chest: Reports none, cough, dyspnea, dyspnea on exertion and sputum; Denies change in mental status, dry cough, hemoptysis, shortness of breath at rest or shortness of breath with exertion Gastrointestinal Gastrointestinal: Reports none; Denies abdominal pain, change in stool character, diarrhea, hematemesis, hematochezia, melena, rectal bleeding or vomiting Genitourinary Genitourinary ED: Reports none; Denies abdominal discomfort, anuria, dysuria, genital pain or polyuria Musculoskeletal Musculoskeletal: Reports none; Denies arthralgias, back pain, difficulty walking, extremity pain, muscle weakness or myalgias Integumentary Reports none; Denies abscess or rash Neurologic Neurologic: Reports none; Denies abnormal gait, confusion, focal weakness, frequent falls, headache(s), loss of vision, numbness, paresthesias, radicular pain, vertigo or weakness Psychiatric Psychiatric: Reports systems reviewed and no addt'l complaints, except as documented and none; Denies behavioral changes, confusion, difficulty concentrating, hallucinations, suicidal ideation, tactile hallucinations or visual hallucinations Endocrine Endocrinology: Denies none, cold intolerance, excessive sweating, fatigue or heat intolerance Hematologic/Lymphatic Hematologic/Lymphatic: Reports none; Denies anemia, easy bleeding or easy bruising Allergic/Immunologic Allergic/Immunologic ED: Denies as per HPI, none, lip swelling, mouth swelling, throat swelling, tongue swelling or hives EXAM Physical Exam Const Vital Signs: 07/24/21 11:29 07/24/21 11:34 07/24/21 11:50 Temperature 97.5 F L 97.5 F L Temperature Source Oral Oral Pulse Rate 97 84 85 Respiratory Rate 20 H 18 18 Respiratory Pattern Normal Blood Pressure 172/82 H 172/82 H Blood Pressure Mean 112 112 Pulse Ox 84 94 Oxygen Delivery Method Nasal Cannula Nasal Cannula Oxygen Flow Rate (L/min) 4 4 07/24/21 11:57 Temperature Temperature Source Pulse Rate Respiratory Rate Respiratory Pattern Tachypnea Blood Pressure Blood Pressure Mean Pulse Ox Oxygen Delivery Method Oxygen Flow Rate (L/min) Positive well nourished and well developed General Appearance ED: well developed and NAD HEENT Reports TM's clear and moist mucous membranes normocephalic and atraumatic; Negative for trauma or tenderness Tympanic Membrane ED: Yes TM's clear Eyes PERRL and EOMs intact bilaterally General Eye ED: Negative for pale conjunctiva or scleral icterus Neck no lymphadenopathy, supple and no JVD General: Negative for tenderness Chest Wall inspection of chest normal and palpation of chest normal Chest: Negative for tenderness Resp Resp Narrative: Patient tachypneic with conversational dyspnea. Patient with diminished breath sounds bilaterally and expiratory wheezes bilaterally. Effort and Inspection: Negative for respiratory distress or pain with movement Auscultation: wheezes; Negative for rhonchi or diminished lung sounds Cardio regular rate, regular rhythm, S1 normal heart sound, S2 normal heart sound and no murmurs Peripheral Pulses: pulses 2+ throughout GI normal to inspection, nondistended, normoactive bowel sounds, soft to palpation, non-tender, non-distended and no masses Back/Spine no CVA tenderness and no thoracic nor lumbar tenderness Extremity normal to inspection General Extremety ED: Negative for edema General Extremity: Negative for edema Neuro oriented x3, CN's II-XII intact bilaterally, no sensory deficits noted and gait normal Sensorium / Orientation: awake, alert, oriented to person, oriented to place and oriented to time Motor Exam: strength 5/5 throughout and strength abnormal Psych mental status grossly normal Skin no rashes or lesions noted and no wounds MDM MDM MDM Narrative Medical decision making narrative: Patient was given DuoNeb aerosol followed by albuterol aerosols and Solu-Medrol. Work-up essentially unremarkable. No evidence of pneumonia. I suspect patient having a COPD exacerbation and even after treatments he still somewhat tachypneic at rest with diffuse wheezing throughout. Case discussed with hospitalist will evaluate patient for admission Lab Data Attestation: I reviewed the patient's lab results. Labs: Laboratory Results - last 24 hr 07/24/21 07/24/21 07/24/21 11:38 11:38 11:38 WBC 7.3 RBC 5.34 Hgb 16.4 Hct 52.5 MCV 98.3 H MCH 30.7 MCHC 31.2 L RDW Std Deviation 46.8 H RDW Coeff of Maylin 12.8 Plt Count 277 MPV 9.5 Immature Gran % (Auto) 0.800 Neut % (Auto) 68.5 Lymph % (Auto) 14.7 L Kimball % (Auto) 14.7 H Eos % (Auto) 0.7 Baso % (Auto) 0.6 Absolute Neuts (auto) 5.0 Absolute Lymphs (auto) 1.07 Nucleated RBC % 0 D-Dimer Quant (PE/DVT) 0.28 Sodium 137 Potassium 4.3 Chloride 100 Carbon Dioxide 37.0 H Anion Gap 0 L BUN 17 Creatinine 0.82 Estim Creat Clear Calc 113.68 Est GFR (MDRD) Af Amer 124 Est GFR (MDRD) Non-Af 102 BUN/Creatinine Ratio 20.6 H Glucose 149 H Lactic Acid Calcium 8.8 Troponin I High Sens 11 07/24/21 11:38 WBC RBC Hgb Hct MCV MCH MCHC RDW Std Deviation RDW Coeff of Maylin Plt Count MPV Immature Gran % (Auto) Neut % (Auto) Lymph % (Auto) Kimball % (Auto) Eos % (Auto) Baso % (Auto) Absolute Neuts (auto) Absolute Lymphs (auto) Nucleated RBC % D-Dimer Quant (PE/DVT) Sodium Potassium Chloride Carbon Dioxide Anion Gap BUN Creatinine Estim Creat Clear Calc Est GFR (MDRD) Af Amer Est GFR (MDRD) Non-Af BUN/Creatinine Ratio Glucose Lactic Acid 2.4 H* Calcium Troponin I High Sens Radiography Chest X-Ray - ED: 1 View Diagnostic Testin view chest x-ray obtained interpreted by myself as chronic interstitial changes with no infiltrates and no acute disease process. Official report from radiology pending. EKG Initial EKG: Attestation: I personally reviewed and interpreted this EKG as follows: Comments: Sinus rhythm with a ventricular rate of 87 bpm with no acute ST segment changes noted. Discharge Plan Triage Chief Complaint: Chest Pain ED Provider: Lenny Sky Dx/Rx/DC Orders Clinical Impression: Acute exacerbation of chronic obstructive pulmonary disease, Heart palpitations Prescriptions: No Action atorvastatin 40 MG tablet 40 mg PO QHS RF: 0 albuterol sulfate 2.5 MG/3 ML solution for nebulization 2.5 mg INHALATION Q6H PRN PRN (Reason: Shortness Of Breath) RF: 0 amlodipine 10 MG tablet 10 mg PO DAILY RF: 0 aspirin 81 MG tablet,chewable 81 mg PO DAILY@0800 RF: 0 albuterol sulfate 1 PUFF inhaler 2 puff INHALATION Q6H PRN PRN (Reason: Shortness Of Breath) RF: 0 varenicline 1 MG tablet 1 mg PO DAILY RF: 0 mnttbjfdxwx-qabvwxrrv-mmlurkja 1 EACH blister with device 1 ea IH DAILY RF: 0 furosemide 20 MG tablet 20 mg PO DAILY Qty: 30 RF: 0 Primary Care Provider: Kyle Carrillo Referrals: Kyle Carrillo DO [Primary Care Provider] - Disposition Disposition: Acute Care Hospital [facility]
[2021-07-24] MEDS: Ipratropium/Albuterol Sulfate 3 ML AMPUL.NEB INHALATION ×4 (11:47→22:52)
[2021-07-24 11:48] LABS: Absolute Lymphocyte Count 1.07 X10^3/uL (0.83-4.51); Basophil# 0.04 X10^3/uL; Basophil% 0.6 % (0-1); Eosinophil# 0.05 X10^3/uL; Eosinophils% 0.7 % (0-5); Hematocrit 52.5 % (40-54); Hemoglobin 16.4 g/dL (13.0-16.5); Lymphocyte # 1.07 X10^3/ul (0.83-4.51); Lymphocyte % 14.7 % (19-41); Mean Corp Hgb Conc 31.2 g/dL (32-36); Mean Corpuscular Hgb 30.7 pg (27.0-32.0); Mean Corpuscular Volume 98.3 fL (80-94); Mean Platelet Vol. 9.5 fl (6.2-12.0); Monocyte# 1.07 X10^3/uL; Monocyte% 14.7 % (0-10); NRBC Flagged by Analyzer 0 % (0-5); Neutrophil # 4.97 X10^3/uL (2.7-7.7); Neutrophil % 68.5 % (47-70); Platelet Count 277 K/mm3 (150-450); RBC Distribution Width CV 12.8 % (11.6-14.6); RBC Distribution Width SD 46.8 fl (35.1-43.9); Red Blood Count 5.34 M/mm3 (4.6-6.2); White Blood Count 7.3 K/mm3 (4.4-11.0)
[2021-07-24] MEDS: Albuterol 2.5 MG/3 ML VIAL.NEB. INHALATION ×3 (11:49→11:52)
[2021-07-24] MEDS: MethylPREDNISolone 125 MG/2 ML Vial IV (11:59)
[2021-07-24 12:00] LABS: D-Dimer Quantitative (DVT/PE) 0.28 FEU/ug/m (0.27-0.49)
[2021-07-24] MEDS: 0.9% Normal Saline 1,000 ML 150 ML IV (12:00)
[2021-07-24 12:02] LABS: Anion Gap 0 (5-15); BUN 17 mg/dL (7-18); BUN/Creat Ratio 20.6 RATIO (10-20); Calcium,Total 8.8 mg/dL (8.5-10.1); Chloride 100 mmol/L (98-107); Creatinine, Serum 0.82 mg/dL (0.70-1.30); EST Glomerular Filtration Rate 102 mL/min (>60); Est Glom Filt Rate - Afr Amer 124 mL/min (>60); Estimated Creatinine Clearance 113.68 ml/min; Glucose 149 mg/dL (74-106); Potassium 4.3 mmol/L (3.5-5.1); Sodium Level 137 mmol/L (136-145); Troponin-I HS 11 pg/mL (3.0-78.0)
--- NOTE | 2021-07-24 12:07 | RAD_ITS ---
STUDY: X-RAY CHEST REASON FOR EXAM: Male, 55 years old. Dyspnea. TECHNIQUE: Single AP portable view of the chest. COMPARISON: 11/18/2020. FINDINGS: Telemetry wires overlie the chest. Lungs well-expanded. There is chronic interstitial changes most marked at the lung bases. There is no new mass or infiltrate. There is stable blunting of the left costophrenic angle suggesting pleural thickening or persistent small pleural effusion. Normal size heart. Normal mediastinum and luli. Normal visualized pulmonary arteries. Normal visualized aortic arch and descending thoracic aorta. There are diffuse degenerative changes of the visualized thoracic spine. Normal visualized ribs, clavicles, and shoulders. There is no demonstrated abnormality of the visualized soft tissue structures of the upper abdomen. RAD/Chest 1 View (Portable) IMPRESSION: Chronic pulmonary changes without acute abnormality or major interval change. Electronically Signed: Malcolm New DO at 12:24 EDT Tel [phone], Service support ,
[2021-07-24 12:19] LABS: Lactic Acid 2.4 mmol/L (0.4-1.9)
--- NOTE | 2021-07-24 12:19 | PCM.HP.STD ---
HPI - General HPI Narrative PARVIN ACOSTA, is a 55 M with history of COPD came to ER with 3 days of progressive worsening of cough with increasing sputum production and dyspnea. On baseline, patient is on 4 L of oxygen but does not have much cough, sputum production or dyspnea. Denies fever or chills. Patient stated he also felt flutters in the chest but not found to be tachycardia or heart rhythm disorder. Twelve-lead EKG shows normal sinus rhythm 87 beats per. QTc 409 ms. High-sensitivity troponin normal. Chest x-ray does not show any acute cardiopulmonary abnormality. Patient given bronchodilator and Solu-Medrol and is further getting admitted. Patient is tired of smoking at 17 age and quit smoking in November 2020. Patient is test is negative Covid as an outpatient in ER. He is Covid vaccinated. 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 [facility] Medical History COPD (chronic obstructive pulmonary disease) Emphysema of lung Home Medications albuterol sulfate 2 puff INHALATION Q6H PRN PRN 11/18/20 [History Last Taken Unknown] albuterol sulfate 2.5 mg INHALATION Q6H PRN PRN 11/18/20 [History Last Taken Unknown] amlodipine 10 mg PO DAILY 11/18/20 [History Last Taken Unknown] aspirin 81 mg PO DAILY@0800 11/18/20 [History Last Taken Unknown] atorvastatin 40 mg PO QHS 11/18/20 [History Last Taken Unknown] zlebqdajewr-urbwidjfb-pfockhqa 1 ea IH DAILY 11/18/20 [History Last Taken Unknown] varenicline 1 mg PO DAILY 11/18/20 [History Last Taken Unknown] furosemide 20 mg PO DAILY #30 tab 11/19/20 [Rx Last Taken Unknown] Allergy/AdvReac Type Severity Reaction Status Date / Time sulfamethoxazole AdvReac Nausea/Vom/ Verified 07/24/21 11:38 [From Bactrim] Diarrhea trimethoprim [From Bactrim] AdvReac Nausea/Vom/ Verified 07/24/21 11:38 Diarrhea Surgical History H/O hernia repair Social History Smoking Status: Current some day smoker tobacco type: cigarettes ROS ROS Narrative Constitutional: Reports fatigue and weakness, low energy HEENT: Reports systems reviewed and no addt'l complaints, except as documented Respiratory/Chest: As mentioned in HPI Gastrointestinal: Denies coffee ground emesis, hematemesis or vomiting Genitourinary: Denies burning urination or new urinary tract symptoms Musculoskeletal: Reports joint pain and limited range of motion Neurologic: Denies seizure-like activity skin: No ulcer. No rash Endocrinology: Reports systems reviewed and no addt'l complaints, except as documented Hematologic/Lymphatic: Reports systems reviewed and no addt'l complaints, except as documented Rest 12 ROS are negative except as mentioned in HPI Vital Signs Vital Signs Vital Signs: 07/24/21 11:29 07/24/21 11:34 07/24/21 11:50 Temperature 97.5 F L 97.5 F L Temperature Source Oral Oral Pulse Rate 97 84 85 Respiratory Rate 20 H 18 18 Respiratory Pattern Normal Blood Pressure 172/82 H 172/82 H Blood Pressure Mean 112 112 Pulse Ox 84 94 Oxygen Delivery Method Nasal Cannula Nasal Cannula Oxygen Flow Rate (L/min) 4 4 07/24/21 11:57 Temperature Temperature Source Pulse Rate Respiratory Rate Respiratory Pattern Tachypnea Blood Pressure Blood Pressure Mean Pulse Ox Oxygen Delivery Method Oxygen Flow Rate (L/min) Weight Weight: 294 lb 15.656 oz Body Mass Index (BMI) 38.9 Physical Exam Narrative General: Alert, Oriented x3, Cooperative, morbid obesity BMI 38.9 kg/m? HEENT: Atraumatic, PERRLA, EOMI, Normocephalic Oral: No Gingival or Mucosal Lesions/ Ulcerations Neck: Supple, No JVD, Negative Carotid Bruits Lungs: Air entry severely diminished in both lungs. Expiratory rhonchi present. Dyspnea at rest. Cardiovascular: Regular rate, Regular Rhythm, Normal S1, Normal S2, No murmurs Abdomen: Bowel Sounds Present, Soft, Non Tender, Non-Distended : No renal angle tenderness. No suprapubic tenderness. Extremities: No edema, Capillary Refill Less than 3 Seconds Skin: No rashes, No breakdown Musculoskeletal: No Tenderness to Palpation of Joints or Extremities Neurological: Cranial nerves II-XII grossly intact, DTR 2+/4 and Symmetrical, Neuro grossly intact Psych/Mental Status: Normal Affect, Appropriate. Results Lab / Micro Data Result Diagrams: 07/24/21 11:38 07/24/21 11:38 Labs: Laboratory Results - last 24 hr 07/24/21 11:38: WBC 7.3, RBC 5.34, Hgb 16.4, Hct 52.5, MCV 98.3 H, MCH 30.7, MCHC 31.2 L, RDW Std Deviation 46.8 H, RDW Coeff of Maylin 12.8, Plt Count 277, MPV 9.5, Immature Gran % (Auto) 0.800, Neut % (Auto) 68.5, Lymph % (Auto) 14.7 L, [place] % (Auto) 14.7 H, Eos % (Auto) 0.7, Baso % (Auto) 0.6, Absolute Neuts (auto) 5.0, Absolute Lymphs (auto) 1.07, Nucleated RBC % 0 07/24/21 11:38: D-Dimer Quant (PE/DVT) 0.28 07/24/21 11:38: Sodium 137, Potassium 4.3, Chloride 100, Carbon Dioxide 37.0 H, Anion Gap 0 L, BUN 17, Creatinine 0.82, Estim Creat Clear Calc 113.68, Est GFR (MDRD) Af Amer 124, Est GFR (MDRD) Non-Af 102, BUN/Creatinine Ratio 20.6 H, Glucose 149 H, Calcium 8.8, Troponin I High Sens 11 Micro: Microbiology 07/24/21 11:41 Nasal Secretion SARS-CoV-2 Antigen (Rapid) - Final Assessment & Plan Assessment/Plan (1) COPD exacerbation: PLAN: 1. COPD exacerbation exact etiology unclear possible viral bronchitis: Patient is [facility]. On bronchodilator schedule, IV Solu-Medrol, incentive spirometry, chest physiotherapy, azithromycin and oxygen therapy to keep pulse ox more than 90%. Sputum culture and respiratory panel ordered. 2. Subjective chest flutter: No objective related diagnosis obvious on exam, EKG or library monitor. Patient does not have history of heart rhythm disorder. He had been evaluated by patient appointment coordinator about 5 years ago and was told he does not have any active cardiac disease. No [place]/coronary artery disease. 3. Hypertension and dyslipidemia: Home medications continued. Blood pressure and heart rate are controlled. 4. Morbid obesity: Weight loss counseling done. 5. Ex-smoker: Patient is not on Chantix. VTE prophylaxis: Lovenox 40 mg subcu daily. Moderate risk for DVT Living will/advanced directive/end of life care: Patient does not have living will or advanced directive or designated power of finance attorney for health. After discussion of benefits/risks procedures involved with full code, DNR CC arrest and DNR CC, the patient opted for full code Patient does want artificial life support including intubation, tube feed, ventilator and/chest compression, central venous catheter, vasopressor and DC shock if needed Total time spent in [id number] encounter in discussion of advanced directive 16 minutes. Charges/Coding Visit Charges Inpatient E&M: 04940 Init Hosp L3 Procedures Hospitalists Procedures: 60843 Advncd Care Plan 30 Min
[2021-07-24] MEDS: Azithromycin 250 MG Tablet 500 MG PO (15:23)
[2021-07-24] MEDS: Enoxaparin 40 MG/0.4 ML Syringe SC (15:23)
[2021-07-24] MEDS: Lactated Ringers 1,000 ML 100 ML IV (15:28)
[2021-07-24 15:43] LABS: Reflex Lactate? Y
[2021-07-24 15:51] LABS: Troponin-I HS 8 pg/mL (3.0-78.0)
[2021-07-24 16:34] LABS: Lactic Acid 1.8 mmol/L (0.4-1.9)
[2021-07-24] MEDS: 0.9% Saline Lock 10 ML Syringe IV (22:34)
[2021-07-24] MEDS: Atorvastatin Calcium 40 MG Tablet PO (22:34)
[2021-07-24] MEDS: guaiFENesin 1,200 MG Tablet 1200 MG PO (22:34)
[2021-07-25] VITALS (16 sets, daily range): BP systolic 142; BP diastolic 65; PULSE 63–98; RESP 16–20; TEMP 36.9; O2SAT 94–96
[2021-07-25] MEDS: Ipratropium/Albuterol Sulfate 3 ML AMPUL.NEB INHALATION ×6 (03:01→22:42)
[2021-07-25 08:33] LABS: Thyroid Stim Hormone (TSH) 0.12 uIU/mL (0.358-3.74)
[2021-07-25] MEDS: Enoxaparin 40 MG/0.4 ML Syringe SC (09:11)
[2021-07-25] MEDS: Azithromycin 250 MG Tablet 500 MG PO (09:11)
[2021-07-25] MEDS: Aspirin 81 MG TAB.CHEW PO (09:11)
[2021-07-25] MEDS: Furosemide 20 MG Tablet PO (09:12)
[2021-07-25] MEDS: amLODIPine 10 MG Tablet PO (09:12)
[2021-07-25] MEDS: guaiFENesin 1,200 MG Tablet 1200 MG PO ×2 (09:12→22:00)
[2021-07-25 09:27] LABS: T4 Free Direct 1.18 ng/dL (0.76-1.46)
--- NOTE | 2021-07-25 11:56 | PCM.PN.HOSP ---
Subjective Subjective Seen and examined. Patient shortness of breath little better but is still chest tightness and congested and wheezing. Objective Data Objective Data Vital Signs: Vital Signs Temp Pulse Resp BP Pulse Ox 98.6 F 87 18 144/96 H 94 07/24/21 22:47 07/25/21 11:17 07/25/21 10:38 07/24/21 22:47 07/25/21 07:38 Oxygen Flow Rate (L/min) 4 Oxygen Delivery Method Nasal Cannula Weight: 291 lb 0.163 oz Body Mass Index (BMI) 38.6 Intake & Output: Intake and Output for Last 24 Hours 07/23/21 07/24/21 07/25/21 23:59 23:59 22:59 Intake Total 1425 / 1625 1148.33 / 1148.33 Balance 1425 / 1625 1148.33 / 1148.33 Lab / Micro Data Result Diagrams: 07/24/21 11:38 07/24/21 11:38 Labs: Laboratory Results - last 24 hr 07/24/21 15:21: Troponin I High Sens 8 07/24/21 15:55: Lactic Acid 1.8 07/25/21 07:47: TSH 0.12 L 07/25/21 07:47: Free T4 1.18 Micro: Microbiology 07/24/21 13:55 Mucosa - Nose Respiratory Panel (PCR) - Final RSV B 07/24/21 11:41 Nasal Secretion SARS-CoV-2 Antigen (Rapid) - Final Physical Exam Narrative General: Alert, Oriented x3, Cooperative, morbid obesity BMI 38.9 kg/m? HEENT: Atraumatic, PERRLA, EOMI, Normocephalic Oral: No Gingival or Mucosal Lesions/ Ulcerations Neck: Supple, No JVD, Negative Carotid Bruits Lungs: Air entry severely diminished in both lungs. Expiratory rhonchi present. Dyspnea improved Cardiovascular: Regular rate, Regular Rhythm, Normal S1, Normal S2, No murmurs Abdomen: Bowel Sounds Present, Soft, Non Tender, Non-Distended : No renal angle tenderness. No suprapubic tenderness. Extremities: No edema, Capillary Refill Less than 3 Seconds Skin: No rashes, No breakdown Musculoskeletal: No Tenderness to Palpation of Joints or Extremities Neurological: Cranial nerves II-XII grossly intact, DTR 2+/4 and Symmetrical, Neuro grossly intact Psych/Mental Status: Normal Affect, Appropriate. Assessment & Plan Assessment/Plan (1) COPD exacerbation: PLAN: 1. COPD exacerbation exact etiology unclear possible viral bronchitis: Patient is being admitted in [facility] on telemetry. On bronchodilator schedule, IV Solu-Medrol, incentive spirometry, chest physiotherapy, azithromycin and oxygen therapy to keep pulse ox more than 90%. Sputum culture and respiratory panel ordered. 07/25: Continue present treatment. Slight improvement. Patient agreed to stay as he wants to get discharged soon as possible as his is admitted in [facility] ICU. 2. Subjective chest flutter: No objective related diagnosis obvious on exam, EKG or teletypesetter monitor. Patient does not have history of heart rhythm disorder. He had been evaluated by catering service manager about 5 years ago and was told he does not have any active cardiac disease. No [place]/coronary artery disease. 3. Hypertension and dyslipidemia: Home medications continued. Blood pressure and heart rate are controlled. 4. Morbid obesity: Weight loss counseling done. 5. Ex-smoker: Patient is not on Chantix. VTE prophylaxis: Lovenox 40 mg subcu daily. Moderate risk for DVT Living will/advanced directive/end of life care: Patient does not have living will or advanced directive or designated power of assistant county attorney for health. After discussion of benefits/risks procedures involved with full code, DNR CC arrest and DNR CC, the patient opted for full code Patient does want artificial life support including intubation, tube feed, ventilator and/chest compression, central venous catheter, vasopressor and DC shock if needed Total time spent in [id number] encounter in discussion of advanced directive 16 minutes. Charges/Coding Visit Charges Inpatient E&M: 38870 Subs Hosp L2
--- NOTE | 2021-07-25 14:33 | CPS ---
Using IS and PEP on his own, with improvement.
[2021-07-25] MEDS: Atorvastatin Calcium 40 MG Tablet PO (22:00)
[2021-07-26] VITALS (7 sets, daily range): BP systolic 138–143; BP diastolic 63–85; PULSE 71–89; RESP 14–16; TEMP 36.5–36.6; O2SAT 93–98
[2021-07-26] MEDS: Ipratropium/Albuterol Sulfate 3 ML AMPUL.NEB INHALATION ×2 (02:53→07:07)
[2021-07-26] MEDS: 0.9% Saline Lock 10 ML Syringe IV ×2 (05:56→08:45)
[2021-07-26] MEDS: Azithromycin 250 MG Tablet 500 MG PO (08:46)
[2021-07-26] MEDS: amLODIPine 10 MG Tablet PO (08:46)
[2021-07-26] MEDS: Furosemide 20 MG Tablet PO (08:46)
[2021-07-26] MEDS: Aspirin 81 MG TAB.CHEW PO (08:46)
[2021-07-26] MEDS: guaiFENesin 1,200 MG Tablet 1200 MG PO (08:47)
[2021-07-26] MEDS: Enoxaparin 40 MG/0.4 ML Syringe SC (08:47)
--- NOTE | 2021-07-26 09:10 | PCM.DC ---
Discharge Instructions Diet Discharge Diet: Low fat / Low cholesterol and 2000 mg Sodium Diet Activity Discharge Activity: Return to Normal Activity Weight Bearing Status: Weight bearing as tolerated Dressing / Incision Call your doctor if you observe: Fever of 101 or Higher, Coldness, Increased Pain, Numbness or Tingling, Change in Color, Inability to urinate, Inability to have a bowel movement, Shortness of breath, Dizziness, Fainting spells, Swelling in the ankles, Chest pain, Prolonged hiccupping, Increased palpitations (irregular heartbeat), Calf discomfort and Uncontrolled pain Follow Up Care Test Results: Test results from this visit will be discussed in further detail at your follow-up appointment, if applicable. Discharge Plan Admission Admit Date/Time: 07/24/21 12:19 Primary Reason for Your Visit: COPD exacerbation Attending Provider: Ashok Vidales Primary Care Provider: Kyle Carrillo Discharge Orders/Prescriptions Prescriptions: New Mucus Relief ER 1,200 mg Tablet Extended Release 12hr 1,200 mg PO BID Qty: 14 RF: 0 cefdinir 300 mg capsule 300 mg PO BID Qty: 10 RF: 0 prednisone 20 mg tablet 40 mg PO DAILY Qty: 10 RF: 0 Continued atorvastatin 40 MG tablet 40 mg PO QHS RF: 0 amlodipine 10 MG tablet 10 mg PO DAILY RF: 0 aspirin 81 MG tablet,chewable 81 mg PO DAILY@0800 RF: 0 albuterol sulfate 1 PUFF inhaler 2 puff INHALATION Q6H PRN PRN (Reason: Shortness Of Breath) RF: 0 xxwnwthymwb-pdxbckxqq-hgofisnq 1 EACH blister with device 1 ea IH DAILY RF: 0 furosemide 20 MG tablet 20 mg PO DAILY Qty: 30 RF: 0 albuterol sulfate 2.5 MG/3 ML solution for nebulization 2.5 mg INHALATION Q6H PRN PRN (Reason: Shortness Of Breath) Qty: 0 RF: 0 Discontinued varenicline 1 MG tablet 1 mg PO DAILY RF: 0 Referrals / Follow Up: Kyle Carrillo DO [Primary Care Provider] - Disposition Disposition (needs filled in before D/C Order can be placed): Home, Self Care
--- NOTE | 2021-07-26 09:17 | DS.PCM_ITS ---
Providers Date of Admission: 07/24/21 Date of Discharge: 07/26/21 Primary Care Physician: Dr. Kyle Carrillo DO Reason For Visit: COPD EXACERBATION Diagnosis Discharge Diagnosis (1) COPD exacerbation: Status: Acute Code(s): J44.1 - Chronic obstructive pulmonary disease with (acute) exacerbation Medications at Discharge Home Medications albuterol sulfate 2 puff INHALATION Q6H PRN PRN 11/18/20 amlodipine 10 mg PO DAILY 11/18/20 aspirin 81 mg PO DAILY@0800 11/18/20 atorvastatin 40 mg PO QHS 11/18/20 nyhufusmakp-fqagzxjbb-deduxpmw 1 ea IH DAILY 11/18/20 furosemide 20 mg PO DAILY #30 tab 11/19/20 albuterol sulfate 2.5 mg INHALATION Q6H PRN PRN #0 ml 07/26/21 cefdinir 300 mg PO BID #10 cap 07/26/21 guaifenesin [Mucus Relief ER] 1,200 mg PO BID #14 tab 07/26/21 prednisone 40 mg PO DAILY #10 tab 07/26/21 Hospital Course Summary of Care Provided Hospital Course: 1. COPD exacerbation exact due to RSV viral pneumonia superimposed on gram-negative avery pneumonia: Patient was admitted in [facility] on telemetry. Patient was treated with bronchodilator schedule, IV Solu-Medrol, incentive spirometry, chest physiotherapy, azithromycin and oxygen therapy to keep pulse ox more than 90%. Preliminary Gram stain of sputum culture growing 2+ gram-negative avery, lactose italian tutor. Respiratory panel positive for RSV B. Patient is discharged on prednisone 40 mg burst therapy for 5 days, cefdinir 300 mg to complete a total of 7 days of antibiotic and Mucinex. 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 2. Subjective chest flutter: No objective related diagnosis obvious on exam, EKG or traffic monitor specialist. Patient does not have history of heart rhythm disorder. He had been evaluated by mold carpenter about 5 years ago and was told he does not have any active cardiac disease. No [place]/coronary artery disease. 3. Hypertension and dyslipidemia: Home medications continued. Blood pressure and heart rate are controlled. 4. Morbid obesity: Weight loss counseling done. 5. Ex-smoker: Patient is not on Chantix. VTE prophylaxis: Lovenox 40 mg subcu daily. Moderate risk for DVT Discharge medication reconciliation done. Discharge follow-up instructions completed. Discharge process discussed with the patient and all questions were answered to patient's satisfaction. Total time spent, exact 35 minutes on discharge meds reconciliation, examination, coordination of care with nurses and ancillary staff, review of imaging and blood test and discussion with the patient on follow-up instructions Physical Exam Narrative General: Alert, Oriented x3, Cooperative, morbid obesity BMI 38.9 kg/m? HEENT: Atraumatic, PERRLA, EOMI, Normocephalic Oral: No Gingival or Mucosal Lesions/ Ulcerations Neck: Supple, No JVD, Negative Carotid Bruits Lungs: Air entry severely diminished in both lungs. Expiratory rhonchi present. Dyspnea improved Cardiovascular: Regular rate, Regular Rhythm, Normal S1, Normal S2, No murmurs Abdomen: Bowel Sounds Present, Soft, Non Tender, Non-Distended : No renal angle tenderness. No suprapubic tenderness. Extremities: No edema, Capillary Refill Less than 3 Seconds Skin: No rashes, No breakdown Musculoskeletal: No Tenderness to Palpation of Joints or Extremities Neurological: Cranial nerves II-XII grossly intact, DTR 2+/4 and Symmetrical, Neuro grossly intact Psych/Mental Status: Normal Affect, Appropriate. Weight / BMI Weight Weight: 293 lb 10.491 oz Body Mass Index (BMI) 38.6 ABG / Lab / Microbiology Data Result Diagrams: 07/24/21 11:38 07/24/21 11:38 Laboratory: Laboratory Results - last 24 hr 07/25/21 07:47: Free T4 1.18 Microbiology: Microbiology 07/24/21 15:15 Sputum, Expectorated/Coughed Gram Stain - Final 07/24/21 15:15 Sputum, Expectorated/Coughed Respiratory Culture - Prelimi eris GNR lactose italian tutor 07/24/21 13:55 Mucosa - Nose Respiratory Panel (PCR) - Final RSV B 07/24/21 11:41 Nasal Secretion SARS-CoV-2 Antigen (Rapid) - Final D/C Instructions Discharge Diet: Low fat / Low cholesterol and 2000 mg Sodium Diet Weight Bearing Status: Weight bearing as tolerated Call your doctor if you observe: Fever of 101 or Higher, Coldness, Increased Pain, Numbness or Tingling, Change in Color, Inability to urinate, Inability to have a bowel movement, Shortness of breath, Dizziness, Fainting spells, Swelling in the ankles, Chest pain, Prolonged hiccupping, Increased palpitations (irregular heartbeat), Calf discomfort and Uncontrolled pain Meaningful Use Info Meaningful Use Diagnoses (Choose all that apply): None applicable Discharge Plan Admission Admit Date/Time: 07/24/21 12:19 Primary Reason for Your Visit: COPD exacerbation Attending Provider: Ashok Vidales Primary Care Provider: Kyle Carrillo Discharge Orders/Prescriptions Prescriptions: New Mucus Relief ER 1,200 mg Tablet Extended Release 12hr 1,200 mg PO BID Qty: 14 RF: 0 cefdinir 300 mg capsule 300 mg PO BID Qty: 10 RF: 0 prednisone 20 mg tablet 40 mg PO DAILY Qty: 10 RF: 0 Continued atorvastatin 40 MG tablet 40 mg PO QHS RF: 0 amlodipine 10 MG tablet 10 mg PO DAILY RF: 0 aspirin 81 MG tablet,chewable 81 mg PO DAILY@0800 RF: 0 albuterol sulfate 1 PUFF inhaler 2 puff INHALATION Q6H PRN PRN (Reason: Shortness Of Breath) RF: 0 royrlqammgg-ljzhrooyb-vpnpgolr 1 EACH blister with device 1 ea IH DAILY RF: 0 furosemide 20 MG tablet 20 mg PO DAILY Qty: 30 RF: 0 albuterol sulfate 2.5 MG/3 ML solution for nebulization 2.5 mg INHALATION Q6H PRN PRN (Reason: Shortness Of Breath) Qty: 0 RF: 0 Discontinued varenicline 1 MG tablet 1 mg PO DAILY RF: 0 Referrals / Follow Up: Kyle Carrillo DO [Primary Care Provider] - Disposition Disposition (needs filled in before D/C Order can be placed): Home, Self Care Charges/Coding Visit Charges Inpatient E&M: 60420 Disch Hosp
--- NOTE | 2021-07-26 09:25 | CASEMGMT ---
RN CM Face to Face with patient for initial transition planning/care coordination assessment. RN CM introduced self and role at [facility]. Patient sitting in chair, alert and oriented. Patient willing to participate in assessment and is able to answer all questions appropriately. Care providers, pharmacy, and demographics verified. Patient wishes to discharge home, denies need for home health at this time. Patient states he has no further needs or concerns at this time. CM to follow for discharge planning needs that may arise. PCP: Gerardo Specialists: [employer] [place] Preferred Pharmacy: [facility] Insurance: Health plan Prescription Benefit: yes Living Will/HPOA: none LNOK: Living Arrangements: Patient lives with and adult son in a single story home with ramp to enter the home. Patient states he is independent at home. Transportation: self/daughter/son DME/HHC: Patient states he has nebulizer and home oxygen with portability through [employer]. [employer] called and confirmed oxygen order at 3 lpm continuous Disposition Plan: Patient to discharge home with family support and follow-up plans in place. Halle MCNAMARA, RN, CM
== END 2021-07-26 11:38 | disposition home or self-care (01) | DRG 190 ==
LOC: ED 12:34 → MS2 13:29
PROVIDERS: Admitting Provider Internal Medicine; Emergency Provider Emergency Medicine; PCP Family Medicine; Visit Provider Internal Medicine
DX: J44.0 Chronic obstructive pulmonary disease with (acute) lower respiratory infection (principal); J12.1 Respiratory syncytial virus pneumonia; J15.6 Pneumonia due to other Gram-negative bacteria; J44.1 Chronic obstructive pulmonary disease with (acute) exacerbation; R00.2 Palpitations; I10 Essential (primary) hypertension; E78.5 Hyperlipidemia, unspecified; E66.01 Morbid (severe) obesity due to excess calories; Z68.38 Body mass index [BMI] 38.0-38.9, adult; Z79.82 Long term (current) use of aspirin; Z99.81 Dependence on supplemental oxygen; Z79.899 Other long term (current) drug therapy; Z87.891 Personal history of nicotine dependence; Z82.49 Family history of ischemic heart disease and other diseases of the circulatory system
CPT/HCPCS: 36415; 71045; 80048; 83605; 84439; 84443; 84484; 85025; 85379; 87040; 87070; 87077; 87186; 87205; 87426; 87633; 93005; 94640; 94667; 99251; 99285; J7030; J7120; A4216; G0463; J0696

== ENCOUNTER 2021-10-25 19:05 | Emergency (ER) | payer OTHER, SELFPAY ==
[2021-10-25 19:05] VITALS: BP 165/84; PULSE 73; RESP 18; TEMP 35.6; O2SAT 95; BMI 39.3
--- NOTE | 2021-10-25 19:11 | EKG12_ITS ---
Test Reason : CP Blood Pressure : / mmHG Vent. Rate : 074 BPM Atrial Rate : 074 BPM P-R Int : 142 ms QRS Dur : 090 ms QT Int : 378 ms P-R-T Axes : 081 097 074 degrees QTc Int : 419 ms Normal sinus rhythm Poor R wave progression Confirmed by SKYE ROSENBAUM, ARIADNE ([id number]), editorial intern PRETTY VALLECILLO ([id number]) on 10/26/2021 11:39:09 AM Referred By: RENNY Confirmed By:ARIADNE CHEUNG MD
--- NOTE | 2021-10-25 19:15 | RAD_ITS ---
STUDY: X-RAY CHEST REASON FOR EXAM: Male, 56 years old. Atypical chest pain TECHNIQUE: 2 AP portable views COMPARISON: 07/24/2021 FINDINGS: Lungs are mildly hyperexpanded with chronic interstitial changes, stable from prior scarring in the left lung base. No superimposed process or significant change. There is no demonstrated pleural abnormality. Normal size heart. Normal mediastinum and luli. Normal visualized pulmonary arteries. Normal visualized aortic arch and descending thoracic aorta. There are diffuse degenerative changes of the visualized thoracic spine. Normal visualized ribs, clavicles, and shoulders. There is no demonstrated abnormality of the visualized soft tissue structures of the upper abdomen. RAD/Chest 1 View (Portable) IMPRESSION: Degenerative changes, as described above. No demonstrated acute cardiopulmonary process. Electronically Signed: Chris Boogie MD at 19:32 EST ,
[2021-10-25 19:37] LABS: Absolute Lymphocyte Count 2.22 X10^3/uL (0.83-4.51); Absolute Neutrophil Count 8.5 X10^3/uL (2.0-7.7); Basophil# 0.05 X10^3/uL; Basophil% 0.4 % (0-1); Eosinophil# 0.39 X10^3/uL; Eosinophils% 3.2 % (0-5); Hematocrit 44.6 % (40-54); Hemoglobin 15.1 g/dL (13.0-16.5); Lymphocyte # 2.22 X10^3/ul (0.83-4.51); Lymphocyte % 18.3 % (19-41); Mean Corp Hgb Conc 33.9 g/dL (32-36); Mean Corpuscular Hgb 31.3 pg (27.0-32.0); Mean Corpuscular Volume 92.3 fL (80-94); Mean Platelet Vol. 10.1 fl (6.2-12.0); Monocyte# 0.95 X10^3/uL; Monocyte% 7.8 % (0-10); NRBC Flagged by Analyzer 0 % (0-5); Neutrophil # 8.47 X10^3/uL (2.7-7.7); Platelet Count 332 K/mm3 (150-450); RBC Distribution Width CV 13.4 % (11.6-14.6); RBC Distribution Width SD 46.1 fl (35.1-43.9); Red Blood Count 4.83 M/mm3 (4.6-6.2); White Blood Count 12.1 K/mm3 (4.4-11.0)
[2021-10-25 19:50] LABS: Anion Gap 5 (5-15); BUN 16 mg/dL (7-18); BUN/Creat Ratio 14.7 RATIO (10-20); Calcium,Total 8.8 mg/dL (8.5-10.1); Chloride 104 mmol/L (98-107); Creatinine, Serum 1.09 mg/dL (0.70-1.30); EST Glomerular Filtration Rate 74 mL/min (>60); Est Glom Filt Rate - Afr Amer 90 mL/min (>60); Glucose 177 mg/dL (74-106); Potassium 3.9 mmol/L (3.5-5.1); Sodium Level 141 mmol/L (136-145); Troponin-I HS 6 pg/mL (3.0-78.0)
[2021-10-25 20:10] VITALS: BP 153/69; PULSE 75; RESP 15; O2SAT 97
--- NOTE | 2021-10-25 20:18 | ED.VIS.CHEST ---
HPI History of Present Illness Chief Complaint: Chest Pain Informant: patient and family Narrative Narrative: 56-year-old male with a history of COPD (O2 dependent) presents with intermittent chest tightness. Patient states that last night began to have some chest heaviness. He he denies any shortness of breath from his baseline or change in cough/sputum. He states that just felt like something was sitting on his chest. He got up and it lasted several hours and then resolved. He was fine until this evening when it came back. He states that his a couple months ago and he has been caring for his son who just had foot surgery. He states that as they set tonight talking with his daughter he wonders if this could be anxiety. He denies any nausea vomiting sweating. He also notes a history of hypertension and hyperlipidemia. He states that he used to take Ativan in the past reports that they will prescribe it to him anymore. [facility] Medical History Acute exacerbation of chronic obstructive pulmonary disease COPD (chronic obstructive pulmonary disease) Emphysema of lung Heart palpitations Home Medications albuterol sulfate 2 puff INHALATION Q6H PRN PRN 11/18/20 [History Last Taken Unknown] amlodipine 10 mg PO DAILY 11/18/20 [History Last Taken Unknown] aspirin 81 mg PO DAILY@0800 11/18/20 [History Last Taken Unknown] atorvastatin 40 mg PO QHS 11/18/20 [History Last Taken Unknown] [id number]-[id number]-weuskgfd 1 ea IH DAILY 11/18/20 [History Last Taken Unknown] furosemide 20 mg PO DAILY #30 tab 11/19/20 [Rx Last Taken Unknown] albuterol sulfate 2.5 mg INHALATION Q6H PRN PRN #0 ml 07/26/21 [Rx Last Taken Unknown] lorazepam [Ativan] 1 mg PO BID PRN #20 tab 10/25/21 [Rx Last Taken Unknown] Allergy/AdvReac Type Severity Reaction Status Date / Time sulfamethoxazole AdvReac Nausea/Vom/ Verified 10/25/21 19:07 [From Bactrim] Diarrhea trimethoprim [From Bactrim] AdvReac Nausea/Vom/ Verified 10/25/21 19:07 Diarrhea Surgical History H/O hernia repair Social History Smoking Status: Former smoker ROS ROS ED Constitutional Constitutional ED: Denies chills, fever(s) or weight loss Eyes Eyes: Denies change in vision or diplopia ENT ENT ED: Denies ear pain, rhinorrhea or sore throat Cardiovascular Cardiovascular: Reports chest pain; Denies orthopnea, palpitations or racing heartbeat Respiratory/Chest Respiratory/Chest: Reports cough and dyspnea; Denies orthopnea Gastrointestinal Gastrointestinal: Denies abdominal pain, diarrhea, nausea or vomiting Genitourinary Genitourinary ED: Denies dysuria, hematuria or urinary frequency Musculoskeletal Musculoskeletal: Denies arthralgias or myalgias Integumentary Denies abscess or rash Neurologic Neurologic: Denies headache(s) or weakness Psychiatric Psychiatric: Reports anxiety and depression; Denies suicidal ideation or suicidal thoughts Endocrine Endocrinology: Denies polydipsia, polyphagia or polyuria Allergic/Immunologic Allergic/Immunologic ED: Denies mouth swelling, tongue swelling or urticaria EXAM Physical Exam Const Vital Signs: 10/25/21 19:05 10/25/21 19:45 10/25/21 20:10 Temperature 96.1 F L Temperature Source Temporal Pulse Rate 73 75 Respiratory Rate 18 15 Respiratory Effort Normal Non-Labored Respiratory Pattern Normal Blood Pressure 165/84 H 153/69 H Blood Pressure Mean 111 97 Pulse Ox 95 97 Oxygen Delivery Method Nasal Cannula Nasal Cannula Oxygen Flow Rate (L/min) 3 3 Positive well nourished, well developed and obese General Appearance ED: well developed Nutritional Appearance: obese HEENT Reports normocephalic, head/scalp atraumatic and moist mucous membranes normocephalic and atraumatic Eyes PERRL and EOMs intact bilaterally Neck no lymphadenopathy, supple and no JVD Resp normal respiratory effort Auscultation: wheezes expiratory wheezes, right lower and right upper and diminished lung sounds Cardio regular rate, regular rhythm and no murmurs GI normal to inspection, nondistended, normoactive bowel sounds and non-tender Palpation: soft Back/Spine no CVA tenderness and normal ROM Extremity normal to inspection General Extremety ED: Negative for edema General Extremity: Negative for edema Neuro oriented x3 and CN's II-XII intact bilaterally Sensorium / Orientation: alert Motor Exam: strength 5/5 throughout Psych mental status grossly normal Mood & Affect: depressed; Negative for tearful Skin no rashes or lesions noted and no wounds Heart Score History: Moderately Suspicious ECG: Normal Age: >45 - <65 years Risk Factors: >/= 3 Risk Factors or History of CAD Troponin: </= Normal Limit Score: 4 MDM MDM MDM Narrative Medical decision making narrative: Basic blood work showed a white count 12.1 with a troponin of 6. BMP is normal. Mitral rotation of chest x-ray is no acute process. I gave him a DuoNeb and his breathing is improved. I am less suspicious for acute coronary syndrome at this time though that could still be the differential I did recommend primary care follow-up for stress testing. This could also be anxiety like he mentioned. And it may be in some part his COPD. I can write for a few Ativan and recommend primary care follow-up to discuss daily medication such as Celexa. Lab Data Attestation: I reviewed the patient's lab results. Labs: Laboratory Results - last 24 hr 10/25/21 10/25/21 19:12 19:12 WBC 12.1 H RBC 4.83 Hgb 15.1 Hct 44.6 MCV 92.3 MCH 31.3 MCHC 33.9 RDW Std Deviation 46.1 H RDW Coeff of Maylin 13.4 Plt Count 332 MPV 10.1 Immature Gran % (Auto) 0.300 Neut % (Auto) 70.0 Lymph % (Auto) 18.3 L Porter % (Auto) 7.8 Eos % (Auto) 3.2 Baso % (Auto) 0.4 Absolute Neuts (auto) 8.5 H Absolute Lymphs (auto) 2.22 Nucleated RBC % 0 Sodium 141 Potassium 3.9 Chloride 104 Carbon Dioxide 32.0 Anion Gap 5 BUN 16 Creatinine 1.09 Estim Creat Clear Calc 84.50 Est GFR (MDRD) Af Amer 90 Est GFR (MDRD) Non-Af 74 BUN/Creatinine Ratio 14.7 Glucose 177 H Calcium 8.8 Troponin I High Sens 6 Radiography Diagnostic Testing: Clinical Impression(s) from Imaging Studies Chest X-Ray 10/25/21 19:15 IMPRESSION: Degenerative changes, as described above. No demonstrated acute cardiopulmonary process. Electronically Signed: Chris Boogie MD at 19:32 EST , EKG Initial EKG: Attestation: I personally reviewed and interpreted this EKG as follows: Comments: Normal sinus rhythm with a ventricular rate of 74 bpm. No concerning features of ACS or ectopy noted. Discharge Plan Triage Chief Complaint: Chest Pain ED Provider: Tae Rodriguez Dx/Rx/DC Orders Clinical Impression: Chest pain, Anxiety Instructions: ED Anxiety Reaction, ED Chest Pain, Uncertain Cause Prescriptions: New lorazepam [Ativan] 1 mg tablet 1 mg PO BID PRN (Reason: anxiety) Qty: 20 RF: 0 No Action atorvastatin 40 MG tablet 40 mg PO QHS RF: 0 amlodipine 10 MG tablet 10 mg PO DAILY RF: 0 aspirin 81 MG tablet,chewable 81 mg PO DAILY@0800 RF: 0 albuterol sulfate 1 PUFF inhaler 2 puff INHALATION Q6H PRN PRN (Reason: Shortness Of Breath) RF: 0 onpibslbzbw-uaeesywap-dvulpzpu 1 EACH blister with device 1 ea IH DAILY RF: 0 furosemide 20 MG tablet 20 mg PO DAILY Qty: 30 RF: 0 albuterol sulfate 2.5 MG/3 ML solution for nebulization 2.5 mg INHALATION Q6H PRN PRN (Reason: Shortness Of Breath) Qty: 0 RF: 0 Primary Care Provider: Kyle Carrillo Referrals: Kyle Carrillo DO [Primary Care Provider] - As soon as possible Disposition Disposition: Home, Self Care
[2021-10-25 20:38] VITALS: PULSE 75; RESP 18
[2021-10-25] MEDS: Ipratropium/Albuterol Sulfate 3 ML AMPUL.NEB INHALATION ×2 (20:38→21:00)
[2021-10-25 21:00] VITALS: O2SAT 95
[2021-10-25 21:18] VITALS: BP 149/85; PULSE 70; RESP 19; O2SAT 95
--- NOTE | 2021-10-25 21:22 | NURSING ---
resp gave aersol but jesica unable to chart it
== END 2021-10-25 21:24 | disposition home or self-care (01) ==
PROVIDERS: Emergency Provider Emergency Medicine; PCP Family Medicine; Visit Provider Emergency Medicine
DX: R07.9 Chest pain, unspecified (principal); J43.9 Emphysema, unspecified; I10 Essential (primary) hypertension; E78.5 Hyperlipidemia, unspecified; E66.9 Obesity, unspecified; F41.9 Anxiety disorder, unspecified; Z68.39 Body mass index [BMI] 39.0-39.9, adult; Z99.81 Dependence on supplemental oxygen; Z79.82 Long term (current) use of aspirin; Z79.899 Other long term (current) drug therapy; Z87.891 Personal history of nicotine dependence
CPT/HCPCS: 71045; 80048; 84484; 85025; 93005; 94640; 99284; A4216

== ENCOUNTER → 2023-01-27 | Outpatient (CLI) | payer MEDICAID, SELFPAY ==
[2023-01-27 12:34] LABS: Absolute Neutrophil Count 8.1 X10^3/uL (2.0-7.7); Basophil% 0.9 % (0-1); Eosinophil# 0.33 X10^3/uL; Eosinophils% 2.9 % (0-5); Hematocrit 50.1 % (40-54); Hemoglobin 15.2 g/dL (13.0-16.5); Lymphocyte % 15.8 % (19-41); Mean Corp Hgb Conc 30.3 g/dL (32-36); Mean Corpuscular Hgb 29.1 pg (27.0-32.0); Mean Corpuscular Volume 95.8 fL (80-94); Mean Platelet Vol. 10.1 fl (6.2-12.0); Monocyte# 1.02 X10^3/uL; NRBC Flagged by Analyzer 0 % (0-5); Neutrophil # 8.12 X10^3/uL (2.7-7.7); Neutrophil % 71.2 % (47-70); Platelet Count 349 K/mm3 (150-450); RBC Distribution Width SD 49.8 fl (35.1-43.9); Red Blood Count 5.23 M/mm3 (4.6-6.2); White Blood Count 11.4 K/mm3 (4.4-11.0)
[2023-01-27 13:20] LABS: Vitamin D,25 Hydroxy 25.4 ng/mL
[2023-01-27 13:32] LABS: Hemoglobin A1c 6.3 % (3.8-5.6)
[2023-01-27 13:35] LABS: ALB/GLOB Ratio 1.1 RATIO (0.9-2.4); AST(SGOT) 6 U/L (15-37); Alanine Aminotransfer ALT/SGPT 19 U/L (16-61); Albumin, Serum 3.5 g/dL (3.2-5.0); Alkaline Phosphatase 63 U/L (45-117); Anion Gap 5 (5-15); BUN 16 mg/dL (7-18); BUN/Creat Ratio 19.7 RATIO (10-20); Calcium,Total 8.6 mg/dL (8.5-10.1); Chloride 104 mmol/L (98-107); Cholesterol 220 mg/dL (200); Creatinine, Serum 0.81 mg/dL (0.70-1.30); EST Glomerular Filtration Rate 104 mL/min (>60); Est Glom Filt Rate - Afr Amer 126 mL/min (>60); Globulin 3.2 g/dL (2.2-4.2); Glucose 161 mg/dL (74-106); High Density Lipoprotein 45 mg/dL; PSA,Total - Annual Screen 0.94 ng/mL (0.00-4.00); Potassium 4.5 mmol/L (3.5-5.1); Protein, Total 6.7 g/dL (6.4-8.2); Sodium Level 141 mmol/L (136-145); Thyroid Stim Hormone (TSH) 0.78 uIU/mL (0.358-3.74); Triglycerides 133 mg/dL; Very Low Density Lipoprotein 27 mg/dL (5-40)
== END | disposition home or self-care (01) ==
LOC: BIMLAB 08:00
PROVIDERS: PCP Internal Medicine; Referring Provider Internal Medicine; Visit Provider Internal Medicine
DX: J44.9 Chronic obstructive pulmonary disease, unspecified (principal); F41.9 Anxiety disorder, unspecified; R73.09 Other abnormal glucose; E78.2 Mixed hyperlipidemia; Z12.5 Encounter for screening for malignant neoplasm of prostate
CPT/HCPCS: 36415; 80053; 80061; 82306; 83036; 84153; 84443; 85025; G0103

== ENCOUNTER → 2023-02-20 | Outpatient (CLI) | payer MEDICAID, SELFPAY ==
--- NOTE | 2023-02-20 10:50 | CT_ITS ---
STUDY: LOW DOSE CT LUNG CANCER SCREENING REASON FOR EXAM: Male, 57 years old. Smoker, screening for lung cancer. Patient smokes half a pack per day for 35 years. RADIATION DOSAGE (If Supplied By Facility): CTDIvol = ( 4.02 ) mGy, DLP = ( 143.96 ) mGycm TECHNIQUE: No contrast was administered. Low dose technique was utilized (average mAS-38 and kVp 120). 1.25 mm axial source images with a slice interval of 1.25-mm were reconstructed in lung windows. 2.5 mm axial source images with a slice interval of 2.5-mm were reconstructed in lung windows. 5.0 mm axial source images with a slice interval of 5.0-mm were reconstructed in soft tissue windows. COMPARISON: Comparison is made with prior chest radiograph dated October 25, 2021. NODULES: There is a 5.4 mm pleural-based nodule in the anterior lateral aspect of the right middle lobe as seen on axial image #163 and coronal image #98. Emphysema: Mild linear scarring at the left lung apex. Mild degree of emphysematous changes slightly more prominent in the upper lobes. Focal linear scarring in the left upper lobe and lingular segment of the left upper lobe. Linear scarring in the left lower lobe. Endobronchial lesion: Unremarkable Aorta: Atherosclerotic plaque formation of the aortic arch. CORONARY ARTERIES: Coronary artery calcification is not seen. Heart: Unremarkable Pulmonary artery: Unremarkable Mediastinal nodes: Small benign-appearing mediastinal lymph nodes. Other chest and abdominal findings: CT/Low Dose CT Lung Screening IMPRESSION: Lung-RADS category 2 - Continue annual screening with LDCT in 12 months. IMPORTANT NOTES FOR USE: ACR Lung-RADS Version 1.1 Assessment Categories Release Date: 2018 Category: Coded 0-4 bases on nodule(s) with highest degree of suspicion. Negative screen is defined as categories 1 and 2; a positive screen is defined as categories 3 and 4. Category 3 and 4A nodules that are unchanged on interval CT should be coded as category 2, and individuals returned to screening in 12 months. Category 4X: Category 3 or 4 nodules with additional imaging findings that increase the suspicion of lung cancer, such as spiculation, GGN that doubles in size in 1 year, enlarged lymph notes, etc. Category Modifiers: S (significant finding unrelated to lung cancer) Electronically Signed: Cheo Guzman MD at 15:17 EDT ,
== END | disposition home or self-care (01) ==
LOC: CT 10:48
PROVIDERS: PCP Internal Medicine; Referring Provider Internal Medicine; Visit Provider Internal Medicine
DX: Z12.2 Encounter for screening for malignant neoplasm of respiratory organs (principal); Z87.891 Personal history of nicotine dependence
CPT/HCPCS: 71271

== ENCOUNTER → 2023-05-10 | Outpatient (CLI) | payer MEDICAID, SELFPAY ==
--- NOTE | 2023-05-10 13:20 | CPS ---
Patient attempted one trial of lung volume study and then refused to do any other testing. Patient is on 3-5 lpm O2 and testing seems difficult and frustrating for patient due to overall breathing status.
--- NOTE | 2023-05-10 13:23 | CPS ---
Patient attempted one lung volume test and then refused to do any further pulmonary function testing. Patient is on 3-5 lpm O2 and seems frustrated with testing due to his difficult breathing issues.
== END | disposition home or self-care (01) ==
PROVIDERS: PCP Internal Medicine; Referring Provider Internal Medicine; Visit Provider Internal Medicine
DX: J96.11 Chronic respiratory failure with hypoxia (principal); J44.9 Chronic obstructive pulmonary disease, unspecified

== ENCOUNTER → 2023-08-02 | Outpatient (CLI) | payer MEDICAID, SELFPAY ==
[2023-08-02 10:41] LABS: Bacteria 0 SEEN /hpf (None Seen); Mucous, Urine 0 SEEN /hpf (<or=2+); Squamous Epithelial Cells - UA 0 SEEN /hpf (0-5)
[2023-08-02 12:35] LABS: Absolute Lymphocyte Count 1.59 X10^3/uL (0.83-4.51); Absolute Neutrophil Count 8.1 X10^3/uL (2.0-7.7); Basophil# 0.06 X10^3/uL; Basophil% 0.5 % (0-1); Eosinophils% 2.7 % (0-5); Hematocrit 51.3 % (40-54); Hemoglobin 15.7 g/dL (13.0-16.5); Lymphocyte # 1.59 X10^3/ul (0.83-4.51); Lymphocyte % 14.3 % (19-41); Mean Corp Hgb Conc 30.6 g/dL (32-36); Mean Corpuscular Hgb 29.2 pg (27.0-32.0); Mean Corpuscular Volume 95.4 fL (80-94); Mean Platelet Vol. 10.2 fl (6.2-12.0); Monocyte# 1.02 X10^3/uL; Monocyte% 9.2 % (0-10); NRBC Flagged by Analyzer 0 % (0-5); Neutrophil # 8.11 X10^3/uL (2.7-7.7); Neutrophil % 72.9 % (47-70); Platelet Count 328 K/mm3 (150-450); RBC Distribution Width CV 14.4 % (11.6-14.6); RBC Distribution Width SD 50.1 fl (35.1-43.9); Red Blood Count 5.38 M/mm3 (4.6-6.2); White Blood Count 11.1 K/mm3 (4.4-11.0)
[2023-08-02 12:50] LABS: Color, Urine Yellow (Yellow); Glucose, Dipstick Normal (Normal); Ketone-Dipstick 5 mg/dl (Negative); Leukocyte Esterase-Dipstick 100 /ul (Negative); Nitrite-Dipstick Negative (Negative); Occult Blood-Urine 10 /ul (Negative); Protein-Dipstick 30 mg/dl (Negative); Urine Clarity Clear (Clear); Urine Urobilinogen 4 mg/dl (Normal)
[2023-08-02 12:53] LABS: Urine Bilirubin Dipstick 1 mg/dL (Negative)
[2023-08-02 13:04] LABS: Red Blood Cells-Urine 5-10 SEEN /hpf (0-5); White Blood Cells 0-5 SEEN /hpf (0-5)
[2023-08-02 13:06] LABS: ALB/GLOB Ratio 1.1 RATIO (0.9-2.4); AST(SGOT) 9 U/L (15-37); Alanine Aminotransfer ALT/SGPT 16 U/L (16-61); Albumin, Serum 3.5 g/dL (3.2-5.0); Alkaline Phosphatase 66 U/L (45-117); Anion Gap 6 (5-15); BUN 15 mg/dL (7-18); BUN/Creat Ratio 16.8 RATIO (10-20); Calcium,Total 8.1 mg/dL (8.5-10.1); Chloride 104 mmol/L (98-107); Cholesterol 211 mg/dL (200); Creatinine, Serum 0.89 mg/dL (0.70-1.30); EST Glomerular Filtration Rate 93 mL/min (>60); Est Glom Filt Rate - Afr Amer 112 mL/min (>60); Globulin 3.3 g/dL (2.2-4.2); Glucose 132 mg/dL (74-106); High Density Lipoprotein 51 mg/dL; Potassium 4.6 mmol/L (3.5-5.1); Protein, Total 6.8 g/dL (6.4-8.2); Sodium Level 141 mmol/L (136-145); Triglycerides 125 mg/dL; Very Low Density Lipoprotein 25 mg/dL (5-40)
[2023-08-02 13:49] LABS: Hemoglobin A1c 6.3 % (3.8-5.6)
== END | disposition home or self-care (01) ==
LOC: BIMLAB 10:39
PROVIDERS: PCP Internal Medicine; Referring Provider Internal Medicine; Visit Provider Internal Medicine
DX: I10 Essential (primary) hypertension (principal); E78.2 Mixed hyperlipidemia; F41.9 Anxiety disorder, unspecified; R73.03 Prediabetes; R39.15 Urgency of urination
CPT/HCPCS: 36415; 80053; 80061; 81001; 83036; 85025; 87086; 87088